=== PATIENT | female | born 1960 | race Caucasian/White ===

== ENCOUNTER 2024-03-19 12:47 | Outpatient (RCR) | payer MEDICARE, MEDICAID, SELFPAY ==
--- NOTE | 2024-03-19 13:10 | PTNOTE_ITS ---
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 She hasn't walked for about 1.5 yrs due to a L great toe wound that didn't heal. She needs assist for all ADL's. 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 This limits standing tolerance as well as extreme weakness of B LE's due to not ambulating for 1.5 yrs and scar tissue/adaptive shortening. She would benefit from some ankle weights to use on top of the knees to extend which will help her standing posture. Pt may benefit from skilled therapy to meet goals and has poor/fair rehab potential depending on if she can overcome the B knee flexion contractures and then strengthen LE's to stand. Short Term and Burlapper Goals 1. Ind with HEP 2. Improved B knee extension to at least -10 deg in order to stand 3. Transfer sit to stand and W/C to chair with modAx1 4. Stand with hand support x30 seconds and minAx1 Treatment Plan 1. Manual therapy ? 2. Therex ? 3. Modalities as indicated, moist heat, ice, estim Frequency and Duration: 1x a week or 1x every 2 weeks while she does knee extension stretches HEP at home and then increase frequency for 12 visits Certification Dates: 03/19/24 to 06/15/24 Procedure Charges OP PT Eval Mod Complex 30 minutes: Yes
== END 2024-03-28 23:59 | disposition home or self-care (01) ==
LOC: CPTX 12:47
PROVIDERS: PCP Family Medicine; Referring Provider Family Medicine; Visit Provider Family Medicine
DX: R53.1 Weakness (principal); R26.89 Other abnormalities of gait and mobility; M24.562 Contracture, left knee; M24.561 Contracture, right knee
CPT/HCPCS: 97162

== ENCOUNTER 2024-10-29 12:41 | Inpatient (IN) | payer MEDICARE, MEDICAID, SELFPAY ==
[2024-10-29 12:44] VITALS: BMI 29.5
--- NOTE | 2024-10-29 12:57 | XR_ITS ---
Examination: Venous duplex lower extremity sonogram, bilateral. Date and time of exam: October 29, 2024 1528 hrs. Indications: Bilateral leg swelling discoloration and nonhealing wounds in the lower legs beginning one month ago Technique: Multiple sonographic images of the deep venous system have been obtained. B-mode/2-D grayscale imaging of vascular structures and Doppler spectral analysis (waveforms) and color performed Both legs are examined. Findings: Deep venous systems do not demonstrate abnormal echogenicity. All visualized deep veins exhibit compressibility. All visualized deep veins exhibit augmentation. Impression: Negative for deep vein thrombosis As clinically warranted, consider arterial Doppler sonography lower extremities follow-up
--- NOTE | 2024-10-29 12:57 | EKG_ITS ---
[facility] Test Date: 2024-10-29 Pat Name: BIANCA MURRAY Department: Room: - Gender: Female Account Advisor: : 1960 Requested By: Lyudmila Masters Order Number: [id number] Reading MD: Lyudmila Masters Measurements Intervals Edison Rate: 81 P: 43 LA: 123 QRS: 34 QRSD: 90 T: 37 QT: 406 QTc: 473 Interpretive Statements SINUS RHYTHM Compared to ECG 02/06/2020 09:58:07 Sinus tachycardia no longer present Short LA interval no longer present /store/S0/[id number]/ecg/[id number].pdf
--- NOTE | 2024-10-29 12:58 | XR_ITS ---
Examination: AP chest single view Technique one AP portable upright chest single view Date and time: August 28, 2024 1432 hours, comparison February 06, 2020 INDICATIONS: Chest pain shortness of breath beginning today. FINDINGS: Normal heart size Moderate elevation right hemidiaphragm with subsegmental atelectasis right base. No pneumonia or pulmonary edema Severe osteopenia IMPRESSION: Again noted moderate elevation right hemidiaphragm with subsegmental atelectasis right base
--- NOTE | 2024-10-29 12:59 | EDNOTE_ITS ---
<Statement entered by Ghazala Delaney MD - 11/08/24 11:09> As co-signing physician, I was present and available for consult prn. I concur with the plan and care as documented by the midlevel provider. ED General RME/HPI General Chief complaint: Weakness Stated complaint: WEAKNESS Time Seen by Provider: 10/29/24 12:48 Arrival date/time: 10/29/24 12:41 RME / HPI RME / HPI narrative: 64-year-old female patient with significant history of hypertension, chronic kidney disease, came in for evaluation regarding possible renal failure according to the EMS. Patient had a blood drawn done last week, and was noted that creatinine was superhigh, however patient refused to go to the emergency room. Today patient decided to come to the emergency room for help. Patient complaining of generalized body weakness, worsening swelling to bilateral lower extremities. Patient is nonambulatory due to contracted lower extremities. Denies any shortness of breath denies any cough denies any fever denies any abdominal pain. Patient still making good amount of urine according to her. Denies any dysuria frequency or hematuria. Related Data Home Medications ?Medication ?Instructions ?Recorded ?Confirmed furosemide 20 mg tablet 20 mg PO QDAY 02/06/2002/05 lisinopril 20 mg tablet 20 mg PO QDAY 02/06/2002/05 pregabalin 75 mg capsule 75 mg PO QDAY 02/06/2002/05 methadone 10 mg/mL oral syringe 115 mg PO QDAY 0 02/11/20 (FOR ORAL USE ONLY) Allergies Allergy/AdvReac Type Severity Reaction Status Date / Time duloxetine AdvReac Severe hair loss Verified 02/06/20 10:53 Review of Systems Review of Systems Narrative Review of Systems: Review of system reviewed and within normal limits except mentioned in HPI ED Exam Narrative Physical exam: VITAL SIGNS: Reviewed. GENERAL APPEARANCE: Alert and interactive, follows commands, no acute distress, HEAD AND FACE: Non-traumatic. ENT: PERRL, pale conjunctiva, eyelid no trauma, Mucous membrane moist. NECK: Supple, nontender, no nuchal rigidity. CHEST: No tenderness, no crepitus, no paradoxical movement, no retractions. LUNGS: Clear, well ventilated, symmetric, no rales, no wheezing, no ronchi, no stridor, good breath sounds bilaterally. HEART: Regular rate, regular rhythm, no murmur, no gallops. ABDOMEN: Soft, positive bowel sounds, nondistended, no guarding, nontender, no rebound, no masses, RECTAL: Deferred. GENITAL: Deferred. NEUROLOGICAL: Gross motor function intact sensory function intact, Appropriate for age. MUSCULOSKELETAL: low back nontender, full range of motion. EXTREMITIES: +2 bilateral lower extremity edema, shiny, with healing wound, limited range of motion. Barely palpable bilateral lower extremity pulses SKIN: Color pale, dry, no rash, no lacerations, no abrasions, no contusions. LYMPHATICS: Deferred. Course Quality Measures none Orders Category Date Time Status Admit to Inpatient Status Routine Admission 10/29/24 16:29 Active Patient Condition Routine Admission 10/29/24 16:29 Ordered COVID-19 Screening Questionnaire NOW Care 10/29/24 14:46 Active COVID-19 Screening Questionnaire NOW Care 10/29/24 15:34 Active Decision to Admit X1 Care 10/29/24 14:46 Completed Decision to Admit X1 Care 10/29/24 15:34 Completed EKG (ED ONLY) *Do not use* NOW Care 10/29/24 12:58 Completed Kohli [Urinary Catheter] QS Care 10/29/24 16:29 Active Miscellaneous Nursing Order NOW Care 10/29/24 16:29 Active Notify provider NEEDED Care 10/29/24 16:29 Active Occult Blood,Stool (Nursing) NOW Care 10/29/24 15:35 Active Strict Intake and Output Routine Care 10/29/24 16:40 Ordered Transfuse,blood/blood products ONCE Care 10/29/24 13:48 Active Consult to Nephrology Stat Cons 10/29/24 14:46 Ordered Diet Renal Diet 10/29/24 Dinner Active CA echo doppler complete Routine Exams 10/29/24 16:34 Ordered EKG (ED Only) Stat Exams 10/29/24 12:57 Ordered US renal BI Routine Exams 10/29/24 16:41 Ordered US venous doppler LE BI Stat Exams 10/29/24 12:57 Taken XR chest 1V Stat Exams 10/29/24 12:58 Completed B-Type Natriuretic Peptide Stat Lab 10/29/24 15:04 Completed CBC AM DRAW Lab 10/30/24 05:00 Ordered CBC AM DRAW Lab 10/31/24 05:00 Ordered CBC AM DRAW Lab 11/01/24 05:00 Ordered CBC Stat Lab 10/29/24 13:15 Completed Comprehensive Metabolic Panel AM DRAW Lab 10/30/24 05:00 Ordered Comprehensive Metabolic Panel AM DRAW Lab 10/31/24 05:00 Ordered Comprehensive Metabolic Panel AM DRAW Lab 11/01/24 05:00 Ordered Comprehensive Metabolic Panel Stat Lab 10/29/24 13:15 Completed Drug Screen,Urine Stat Lab 10/29/24 15:35 Ordered Folate Routine Lab 10/29/24 16:39 Ordered HCV RNA, PCR, QN* (Source Pt) Routine Lab 10/29/24 Ordered Iron Panel Routine Lab 10/30/24 05:00 Ordered Lactate (Lactic Acid) Routine Lab 10/29/24 16:05 Completed Lipid Panel AM DRAW Lab 10/30/24 05:00 Ordered Magnesium AM DRAW Lab 10/30/24 05:00 Ordered Partial Thromboplastin Time Stat Lab 10/29/24 13:15 [address] Review Blood Smear Stat Lab 10/29/24 13:15 Completed Procalcitonin Stat Lab 10/29/24 16:00 Received Prothrombin Time with INR Stat Lab 10/29/24 13:15 Completed Thyroid Stimulating Hormone AM DRAW Lab 10/30/24 05:00 Ordered Troponin I Stat Lab 10/29/24 13:15 Completed Type and Screen Stat Lab 10/29/24 13:48 Ordered Urinalysis, C/S if Indicated Stat Lab 10/29/24 14:24 Completed Urine Culture Stat Lab 10/29/24 14:24 Received Vitamin B12 Routine Lab 10/29/24 16:39 Ordered prbc [Red Blood Cells] Stat Lab 10/29/24 13:48 Ordered 1 gm* IV Qday Med 10/30/24 09:00 Ordered cefTRIAXone/D5w 1gm IV premix [Rocephin/D5w 1gm IV premix] 1 gm in 50 ml IV QDAY Acetaminophen Tab [Tylenol Tab] Med 10/29/24 16:29 Ordered 650 mg PO Q6H PRN Heparin Inj Med 10/29/24 22:00 Ordered 5,000 unit SC Q8HR Ondansetron Inj [Zofran Inj] Med 10/29/24 16:29 Active 4 mg IVP Q6H PRN Ringers Lactated 1000 ml [Lactated Ringers] 1,000 ml Med 10/29/24 16:37 Ordered IV 100 mls/hr Senna [Senokot] Med 10/30/24 09:00 Active 1 tab PO QDAY cefTRIAXone/D5w 1gm IV premix [Rocephin/D5w 1gm IV Med 10/29/24 15:31 Discontinued premix] 1 gm in 50 ml IV X1 Code Status Routine Oth 10/29/24 16:29 Ordered Vital Signs Vital signs: Vital Signs Temperature 97.5 F 10/29/24 13:28 Pulse Rate 78 10/29/24 13:28 Respiratory Rate 17 10/29/24 13:28 Blood Pressure 140/91 H 10/29/24 13:28 Pulse Oximetry (%) 100 10/29/24 13:28 Oxygen Delivery Method Room Air 10/29/24 13:28 Discharge Plan Plan Patient Disposition: Admit Acute Care w/in Hospital Discharge Disposition comment: Stable Prescriptions/Referrals Prescriptions/Med Rec: No Action lisinopril 20 mg tablet 20 mg PO QDAY furosemide 20 mg tablet 20 mg PO QDAY pregabalin 75 mg capsule 75 mg PO QDAY methadone 10 mg/mL Syringe 115 mg PO QDAY Rx Instructions: CONFIRMED WITH ANTELMO AMAYA Referrals: Stan Marroquin MD [Primary Care Provider] - In 1 week Problem List Clinical Impression: UTI (urinary tract infection), Anemia, End-stage renal disease (ESRD) Patient/Caregiver Discharge Instructions Print Language: Urdu Stand Alone Forms: [facility]quel Award Info., Patient Portal Info Letter MDM Narrative MDM hospital course: 64-year-old female patient with significant history of hypertension, chronic kidney disease, came in for evaluation regarding possible renal failure according to the EMS. Patient had a blood drawn done last week, and was noted that creatinine was superhigh, however patient refused to go to the emergency room. Today patient decided to come to the emergency room for help. Patient complaining of generalized body weakness, worsening swelling to bilateral lower extremities. Patient is nonambulatory due to contracted lower extremities. Denies any shortness of breath denies any cough denies any fever denies any abdominal pain. Patient still making good amount of urine according to her. Denies any dysuria frequency or hematuria. Patient hemoglobin today was noted to be 6.6, hematocrit of 21.3. Creatinine was noted to be 5.8, BUN of 57. Potassium is normal. Urinalysis positive for UTI. Chest x-ray showed Again noted moderate elevation right hemidiaphragm with subsegmental atelectasis right base Patient received 1 unit of packed RBC in the emergency room. Spoke with Dr. Marquez photo producer, who advised me to admit the patient for possible dialysis in the morning. Spoke with hospitalist who admitted the patient. Medication Administration(s) Medication Administration History Acetaminophen (Acetaminophen 325 Mg Tablet) 650 mg PO Q6H PRN PRN Reason: Fever >101.5 Stop: 11/28/24 16:28 Heparin Sodium (Porcine) (Heparin Sod Inj 5000 Unit/Ml Vial) 5,000 unit SC Q8HR SIDRA Stop: 11/12/24 21:59 Lactated Ringer's (Lactated Ringers) 1,000 mls @ 100 mls/hr IV .Q10H ONE Stop: 10/30/24 02:36 Ondansetron HCl (Ondansetron Inj 2 Mg/Ml Inj 2 Ml) 4 mg IVP Q6H PRN; Protocol PRN Reason: NAUSEA OR VOMITING Stop: 11/28/24 16:28 Sennosides (Senna Tablet) 1 tab PO QDAY SIDRA; Protocol Stop: 11/29/24 08:59 Discontinued Medications Ceftriaxone Sodium/Dextrose (Rocephin/D5w 1gm Iv Premix) 1 gm in 50 mls @ 100 mls/hr IV X1 ONE Stop: 10/29/24 16:00 Last Admin: 10/29/24 16:05 Dose: 100 mls/hr Documented By: AA Patient received ceftriaxone IV, Tylenol, IV fluids for hydration and Zofran
[2024-10-29 13:28] VITALS: BP 140/91; PULSE 78; RESP 17; TEMP 36.4; O2SAT 100
[2024-10-29 13:29] LABS: Basophils # (Auto) 0.0 Thou/mm3 (0.0-0.2); Basophils % (Auto) 0 % (0-2.5); Eosinophils # (Auto) 0.1 Thou/mm3 (0.0-0.5); Eosinophils % (Auto) 4 % (0-10); Hematocrit 21.3 % (36.0-46.0); Immature Granulocytes Auto 0.02 Thou/mm3 (0.00-0.00); Lymphocytes # (Auto) 0.4 Thou/mm3 (1.0-4.8); Lymphocytes % (Auto) 13 % (10-50); Mean Corpuscular HGB Conc 31.0 g/dl (31.0-37.0); Mean Corpuscular Hemoglobin 28.1 pg (25.0-35.0); Mean Corpuscular Volume 91 fL (80-100); Monocytes # (Auto) 0.2 Thou/mm3 (0.0-0.8); Monocytes % (Auto) 8 % (0-12); Neutrophils # (Auto) 2.3 Thou/mm3 (1.8-7.7); Neutrophils % (Auto) 75 % (37-80); Nucleated Red Blood Cell # 0.00 Thou/mm3 (0.00-0.00); Nucleated Red Blood Cell % 0 /100 WBC (0); RDW Standard Deviation 50.8 fL (36.4-46.3); Red Blood Count 2.35 Miln/mm3 (4.00-5.20); White Blood Count 3.1 Thou/mm3 (3.6-11.0)
[2024-10-29 13:30] LABS: Hemoglobin 6.6 g/dL (12.0-16.0); Platelet Count 78 Thou/mm3 (140-440)
[2024-10-29 13:50] LABS: Alanine Aminotransferase 18 U/L (10-49); Albumin, Serum 3.6 gm/dL (3.4-4.8); Albumin/Globulin Ratio 1.5 (1.2-2.2); Alkaline Phosphatase 143 U/L (46-116); Anion Gap 14 (7-16); Aspartate Amino Transferase 23 U/L (0-34); BUN/Creatinine Ratio 10 Ratio (12-20); Bilirubin,Total 0.4 mg/dL (0.3-1.2); Blood Urea Nitrogen 57 mg/dL (9-23); Calcium 8.8 mg/dL (8.3-10.6); Calcium (Corrected) 9.1 mg/dL (8.5-10.1); Carbon Dioxide 19.0 mMol/L (20.0-31.0); Chloride 113 mMol/L (98-107); Creatinine (Component) 5.8 mg/dL (0.6-1.3); Estimated Creatinine Clearance 11.6 mL/min (>60); Globulin 2.4 gm/dL (2.3-3.5); Glucose 102 mg/dL (74-106); Osmolality,Calculated 306 (275-295); Potassium 4.3 mMol/L (3.4-5.1); Sodium 146 mMol/L (136-145); Total Protein 6.0 gm/dL (5.7-8.2); Troponin I < 0.020 ng/mL (0.0-0.045); eGFR 8 See Note
[2024-10-29 14:01] LABS: INR 1.1 (0.9-1.3); Partial Thromboplastin Time 24.4 Seconds (22.0-36.0); Prothrombin Time 11.6 Seconds (9.0-12.2)
[2024-10-29 14:37] LABS: Collection Type, Urine Clean Catch
[2024-10-29 14:51] LABS: Amorphous Crystals,Urine Present (Absent); Bacteria,Urine 2+; Bilirubin,Urine Negative (Negative); Blood,Urine 3+ (Negative); Glucose, Urine Negative (Negative); Ketones,Urine Negative (Negative); Leukocyte Esterase,Urine Positive (Negative); Nitrite,Urine Negative (Negative); PH,Urine 5.5 (5.0-7.0); Protein,Urine 2+ (Neg - Trace); RBC,Urine 114 /hpf (0-3); Specific Gravity,Urine 1.011 (1.001-1.035); Squamous Epithelial Cell,Urine 10 /hpf (0-5); Urobilinogen,Urine Negative mg/dL (0.0-1.0); WBC,Urine 208 /hpf (0-5)
[2024-10-29 14:55] LABS: Clarity,Urine Cloudy (Clear/Hazy); Color,Urine Lt-Yellow (Lt Yel-Yel); Culture Indicated,Urine Yes
[2024-10-29 15:02] LABS: Slide Review Platelets confirmed
[2024-10-29 15:21] LABS: Path Review Blood Smear Sent to Pathologist
[2024-10-29 15:34] LABS: B-Type Natriuretic Peptide 197 pg/mL (0-100)
[2024-10-29] MEDS: cefTRIAXone/D5w 1gm IV premix 1 GM/50 ML BAG IV (16:05)
[2024-10-29 16:09] LABS: Lactate (Lactic Acid) 1.2 mMol/L (0.4-2.0)
--- NOTE | 2024-10-29 16:34 | ECHO_ITS ---
Transthoracic Echo Report Ht (in): 69 Wt (lb): 200 Exam Location: Echo Lab Status: Emergency Animal Caregiver: Amirah Lopez Indications: Procedure Performed: BP: 121 / 63 HR: 73 Technical Quality: Technically difficult study MEASUREMENTS (Male / Female) Normal Values 2D ECHO LV Diastolic Diameter PLAX 4.7 cm 4.2 - 5.9 / 3.9 - 5.3 cm LV Systolic Diameter PLAX 2.9 cm IVS Diastolic Thickness 0.7 cm 0.6 - 1.0 / 0.6 - 0.9 cm LVPW Diastolic Thickness 0.9 cm 0.6 - 1.0 / 0.6 - 0.9 cm LV Relative Wall Thickness 0.3 LVOT Diameter 1.8 cm Aortic Root Diameter 3.1 cm LA Systolic Diameter LX 5.1 cm 3.0 - 4.0 / 2.7 - 3.8 cm LV Ejection Fraction MOD BP 65.3 % >= 55 % LV Cardiac Index MOD BP 3254.3 cm?/min?m? LV Ejection Fraction MOD 4C 57.8 % LV Cardiac Index MOD 4C 2206.2 cm?/min?m? LV Ejection Fraction 4C AL 60.0 % LV Cardiac Index 4C AL 2425.2 cm?/min?m? LV Ejection Fraction MOD 2C 69.5 % LV Cardiac Index MOD 2C 3893.4 cm?/min?m? LV Ejection Fraction 2C AL 69.6 % LV Cardiac Index 2C AL 4121.3 cm?/min?m? LA Volume Index 21.8 cm?/m? 16 - 28 cm?/m? M-MODE Aortic Root Diameter MM 2.6 cm LA Systolic Diameter MM 4.9 cm LA Ao Ratio MM 1.9 AV Cusp Separation MM 2.0 cm DOPPLER AV Peak Velocity 156.0 cm/s AV Peak Gradient 9.7 mmHg AV Mean Gradient 5.0 mmHg AV Velocity Time Integral 35.2 cm LVOT Peak Velocity 115.0 cm/s LVOT Peak Gradient 5.3 mmHg LVOT Velocity Time Integral 29.4 cm LVOT Cardiac Index 2570.9 cm?/min?m? AV Area Cont Eq vti 2.1 cm? AV Area Cont Eq pk 1.9 cm? MV Area PHT 3.3 cm? Mitral E Point Velocity 107.0 cm/s Mitral A Point Velocity 106.0 cm/s Mitral E to A Ratio 1.0 LV E' Lateral Velocity 10.7 cm/s Mitral E to LV E' Lateral Ratio 10.0 LV E' Septal Velocity 7.3 cm/s Mitral E to LV E' Septal Ratio 14.7 TR Peak Velocity 238.0 cm/s TR Peak Gradient 22.7 mmHg FINDINGS Left Ventricle Normal left ventricular size, wall thickness, systolic function with no obvious regional wall motion abnormalities. The ejection fraction is visually estimated at 55-60%. There is grade I diastolic dysfunction of the left ventricle (impaired relaxation pattern). Right Ventricle The right ventricle is normal in size and systolic function. Left Atrium The left atrium is normal by two-dimensional, color flow and Doppler imaging with no structural abnormalities, no thrombus formation present. Right Atrium The right atrium is normal by two-dimensional imaging, color flow and Doppler imaging with no structural abnormalities, no thrombus formation present. Atrial Septum The interatrial septum appears normal with no evidence of a shunt. Aorta The aorta is normal by two-dimensional, color flow and Doppler interrogation. Mitral Valve The mitral valve is normal by two-dimensional, color flow and Doppler interrogation. There is no significant mitral valve regurgitation, stenosis or prolapse. Aortic Valve The aortic valve is trileaflet and normal by two-dimensional, color flow and Doppler interrogation. There is no significant aortic valve regurgitation. Tricuspid Valve The tricuspid valve is normal by two-dimensional, color flow and Doppler interrogation. There is mild tricuspid valve regurgitation. Pulmonic Valve The pulmonic valve is not well visualized. There is no significant pulmonic valve regurgitation. Vessels Inferior vena cava not well visualized. Pericardium The pericardium is normal by two-dimensional imaging. There is no significant pericardial effusion. CONCLUSIONS Indication: CKD Normal LV size and wall thickness. Estimated at 55-60%. There is grade I diastolic dysfunction. The RV is normal in size and systolic function. Mild TR. Collins Rowan (Electronically Signed) Final Date: 01 November 2024 11:05
--- NOTE | 2024-10-29 16:41 | XR_ITS ---
Examination: Retroperitoneal ultrasound, complete Technique: Multiple high resolution grayscale images of the retroperitoneum obtained, including kidneys and bladder. Exam date and time:October 29, 2024, 1654 hrs. Indications: Acute renal insufficiency on laboratory examination today. Findings: Right kidney 10.4 cm renal cortex 1.5 cm Midpole 22 mm cyst Left kidney 10.3 cm cortex 0.9 cm 16 x 13 mm midpole cyst Moderate renal parenchymal scar formation. No hydronephrosis No bladder mass or bladder calculi, bladder prevoid volume 444 cc postvoid volume 0 cc Impression: Bilateral renal cortical thinning Moderate bilateral renal parenchymal scar formation No hydronephrosis
[2024-10-29 16:55] LABS: Procalcitonin 0.35 ng/ml (0.0-0.49)
--- NOTE | 2024-10-29 16:58 | XR_ITS ---
Examination: Arterial duplex lower extremity study. Date and time of exam: October 29, 2024, 1711 hrs. Indications: Bilateral leg swelling discoloration and nonhealing wounds both legs noticed beginning one month ago. Findings: Duplex sonographic imaging of the lower extremity arteries using B-mode/Stearns scale imaging and Doppler spectral analysis and color flow. Ankle brachial indices have been recorded. Right common femoral artery demonstrates triphasic flow. Right superficial femoral artery demonstrates triphasic flow. Right popliteal artery demonstrates triphasic flow. Right posterior tibial artery demonstrated triphasic flow. Right ankle/brachial index is 1.1. Left common femoral artery demonstrates triphasic flow. Left superficial femoral artery demonstrates triphasic flow. Left popliteal artery demonstrates monophasic flow. Left posterior tibial artery demonstrated monophasic flow. Left ankle/brachial index is 1.3. Impression: Negative for significant peripheral obstructive arterial disease
--- NOTE | 2024-10-29 17:00 | ESHP_ITS ---
Documentation for date of: 10/29/24 HPI History of Present Illness Chief complaint: Generalized weakness History of present illness: A 64-year-old female with significant past medical history of hypertension, chronic back pain on methadone, hepatitis C treated with interferon therapy in 2001, pancreatic mass, bedbound since 2 years, CKD presented to the hospital with chief complaints of generalized weakness and noted to have worsening kidney functions on the lab work done recently a week ago. Reported that she is bedbound since 2 years after grafts placed on the lower extremities and since then patient is unable to bear weight on her legs and also developed contractures. 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 Reported that she is having bilateral lower extremity swelling since almost 2 months. Denies fever, shortness of breath, burning micturition, abdominal pain, nausea, vomitings, blood in stools, change in urine output.Denies previous history of CAD/similar complaints/hemodialysis. ED course: - Vitals at the time of admission are stable except for mildly elevated blood pressure 140/91 mmHg and saturating 100% on room air - Labs at the time of admission are significant for WBC 3.1, hemoglobin 6.6, platelet count 78, sodium 146, potassium 4.3, chloride 113, bicarb 19, BUN 57, creatinine 5.8 - Urinalysis is significant for 2+ protein, 3+ blood, 114 RBC, 208 WBC, 2+ bacteria - Urine toxicology tested positive for opiates, methamphetamine, marijuana - Chest x-ray done at the time of admission showed elevated right Lionel diaphragm with no significant infiltrates - Bilateral venous Doppler of lower extremities is negative for DVT Past medical history: Hypertension, chronic back pain, hepatitis C, pancreatic mass, CKD, Had history of diabetes mellitus but resolved now Past surgical history: Grafts on left lower extremity Social history: Lives at home and is taken care of by care provider. Denies smoking, alcohol, other illicit drug abuse but urine toxicology tested positive for marijuana and methamphetamine Review of Systems Review of Systems Systems Reviewed: All systems reviewed, normal except as documented Exam Vital Signs Temp Pulse Resp BP Pulse Ox O2 Del Method 97.5 F 78 17 140/91 H 100 Room Air 10/29/24 13:28 10/29/24 13:28 10/29/24 13:28 10/29/24 13:28 10/29/24 13:28 10/29/24 13:28 Narrative Exam General: Awake. lying comfortably in the bed HEENT: Normocephalic, atraumatic, mucous membranes moist. Heart: Regular rate and rhythm, no murmurs. Lungs: Clear to auscultation with no wheezing or crackles. Abdomen: Soft, nondistended, nontender, positive bowel sounds. ?No guarding or rebound tenderness. Neurologic: Alert and oriented x3, no gross neurological deficit, and patient able to move all 4 extremities. Extremities: Noted b/l pitting pedal edema extending upto knees. Skin: Noted rash on lower extremities and flaking with chronic skin changes - induration Results: Labs 10/30/24 08:59 10/30/24 08:59 Labs: Short CBC 10/29/24 Range/Units 13:15 WBC 3.1 L (3.6-11.0) Thou/mm3 Hgb 6.6 L* (12.0-16.0) g/dL Hct 21.3 L* (36.0-46.0) % Plt Count 78 L (140-440) Thou/mm3 BMP 10/29/24 13:15 Sodium 146 H Potassium 4.3 Chloride 113 H Carbon Dioxide 19.0 L BUN 57 H Creatinine 5.8 H* Glucose 102 Calcium 8.8 Cardiac Enzymes 10/29/24 Range/Units 13:15 Troponin I < 0.020 (0.0-0.045) ng/mL Liver Function 10/29/24 Range/Units 13:15 Total Bilirubin 0.4 (0.3-1.2) mg/dL AST 23 (0-34) U/L ALT 18 (10-49) U/L Alkaline Phosphatase 143 H (46-116) U/L Albumin 3.6 (3.4-4.8) gm/dL Urine 10/29/24 Range/Units 14:24 Urine Color Lt-Yellow (Lt Yel-Yel) Urine Clarity Cloudy A (Clear/Hazy) Urine pH 5.5 (5.0-7.0) Ur Specific [place] 1.011 (1.001-1.035) Urine Protein 2+ A (Neg - Trace) Urine Glucose (UA) Negative (Negative) Quality Measures Quality Measures none Advance care planning discussed with:: patient Medications Home Medications and Allergies Home Medications ?Medication ?Instructions ?Recorded ?Confirmed ?Type lisinopril 20 mg tablet 20 mg PO QDAY 02/06/2010/29 History methadone 10 mg/mL oral syringe 65 mg PO QDAY 02/11/20 10/29/24 History (FOR ORAL USE ONLY) Allergies Allergy/AdvReac Type Severity Reaction Status Date / Time duloxetine AdvReac Severe hair loss Verified 02/06/20 10:53 Visit Medications Acetaminophen (Acetaminophen 325 Mg Tablet) 650 mg PO Q6H PRN PRN Reason: Temp >100.3 or mild pain 1-3 Stop: 11/28/24 16:28 Heparin Sodium (Porcine) (Heparin Sod Inj 5000 Unit/Ml Vial) 5,000 unit SC Q8HR SIDRA Stop: 11/12/24 21:59 Lactated Ringer's (Lactated Ringers) 1,000 mls @ 100 mls/hr IV .Q10H ONE Stop: 10/30/24 02:36 Ceftriaxone Sodium/Dextrose (Rocephin/D5w 1gm Iv Premix) 1 gm in 50 mls @ 100 mls/hr IV QDAY SIDRA Stop: 11/06/24 08:59 Ondansetron HCl (Ondansetron Inj 2 Mg/Ml Inj 2 Ml) 4 mg IVP Q6H PRN; Protocol PRN Reason: NAUSEA OR VOMITING Stop: 11/28/24 16:28 Sennosides (Senna Tablet) 1 tab PO QDAY SIDRA; Protocol Stop: 11/29/24 08:59 Discontinued Medications Ceftriaxone Sodium/Dextrose (Rocephin/D5w 1gm Iv Premix) 1 gm in 50 mls @ 100 mls/hr IV X1 ONE Stop: 10/29/24 16:00 Last Admin: 10/29/24 16:05 Dose: 100 mls/hr Assessment & Plan Plan A 64-year-old female with significant past medical history of hypertension, chronic back pain on methadone, hepatitis C treated with interferon therapy in 2001, pancreatic mass, bedbound since 2 years, CKD presented to the hospital with chief complaints of generalized weakness and noted to have worsening kidney functions on the lab work done recently a week ago. # Acute on chronic kidney disease versus CKD - Presented to the hospital as patient found to have worsened renal functions on a regular checkup - Denies burning micturition, change in urine output, nausea, vomiting, diarrhea episodes, no change in diet and endorsed that she is taking adequate fluids - Endorsed that she is having lower extremity swelling since almost 2 months - Baseline creatinine is 2.5 in 2022, creatinine at the time of admission is 5.8 - Patient might be having progressive chronic kidney disease as patient had history of hypertension and previous history of diabetes mellitus complicated with diabetic peripheral neuropathy and peripheral arterial disease which was controlled now even without medications Plan - Renal ultrasound is ordered - Kohli catheter was placed and will do strict input and output monitoring - Air Conditioning Technician, Dr. Muniz was consulted and will appreciate his recommendations - Will avoid nephrotoxic medications and renally dose medications - If renal functions does not improve, patient might need dialysis which was explained to the patient and patient agreed to that # Hypernatremia # Hyperchloremia - Noted to have sodium of 146, chloride 113 at the time of presentation - Might be having mild dehydration - Bedside ultrasound to check IVC was done, but could not assess properly due to poor visibility Plan - Started patient on IV maintenance fluids, LR at 100 mL/h - Will continue to monitor electrolytes # Metabolic acidosis - Likely in the setting of the renal failure - Bicarb at the time of admission is 19 - Does not have any anion gap or lactic acidosis - On examination, does not have any acidotic breathing Plan - Will continue to monitor electrolytes - If acidosis is worsening, patient might need dialysis # UTI - Though patient denies burning micturition, urine analysis at the time of admission is suggestive of UTI showing 2+ protein, 3+ blood, 114 RBC, 208 WBC, 2+ bacteria Plan - Started on ceftriaxone 1 g IV once daily [10/29- - Will follow-up with urinary cultures # Pancytopenia - At the time of admission, noted to have WBC 3.1, hemoglobin 6.6, platelet 78,000 - Likely nutritional, anemia of chronic kidney disease Plan - Peripheral smear was sent - Iron, B12, folate study is ordered and will follow-up for the results - Transfused 1 unit of PRBC - Will continue to monitor CBC and look for any bleeding manifestations # Methamphetamine, marijuana use disorder # Opioid dependence for chronic back pain - Patient reported that she uses methadone 65 mg once daily for the chronic back pain that developed when she is working as she used to lift heavy weights - Patient denied any illicit drug abuse but tested positive for methamphetamine, marijuana Plan - Will refer to social science manager - Will continue methadone 65 mg once daily for back pain Hospital Maintenance: Dispo: Med tele DVT ppx: Heparin GI ppx: not needed Diet : Renal IV lines: peripheral Code status: Full Patient plan of care was discussed with the attending physician, Dr. Dorothea Feliciano, PGY2 Attending Provider Attestation/Addendum I, Gracie Piedra DO, attest that I was physically present for the clemons portions of the service and evaluated the patient with the resident and I reviewed and discussed the case with the resident and agree with the resident's findings and plans of care as documented above Patient is a 64-year-old female past medical history of hypertension, chronic back pain on methadone, hepatitis C, pancreatic mass who is bedbound and was brought to ED due to referral by her PCP. Patient states that she had her labs done outpatient and was told to come to the ER due to her poor renal function. Patient has been bedbound for 2 years due to grass placed on her lower extremities. She states that she has been feeling unwell for the past week and has had poor oral intake. She denies any significant weight loss. She denies any dysuria, chest pain, shortness of breath, fevers or chills otherwise. Patient was found to have a creatinine of 5.8 on presentation to the ED with BUN of 57. Hemoglobin was noted also to be 6.6. Patient denies any blood in the stool. She denies any hx of endoscopy or colonoscopy. She also denies following with nephrology in the past. Suspect anemia of chronic disease secondary to CKD. Nephrology was consulted from ED. Will start patient on IV fluids as she may have PANCHO on CKD. Will admit patient to med/ tele for further workup and medical management of acute renal failure. Patient denies any active chest pain, fever, chills, nausea, vomiting or shortness of breath.
[2024-10-29 17:13] LABS: Amphetamine/Methamp Scrn,U Positive (Negative); Barbiturate Screen,Urine Negative (Negative); Benzodiazepines Screen,Urine Negative (Negative); Benzoylecgonine Screen, Ur Negative (Negative); Fentanyl Screen,Urine Negative (Negative); Opiate Screen,Urine Positive (Negative); THC Screen,Urine Positive (Negative)
--- NOTE | 2024-10-29 17:27 | ESCONSULT_ITS ---
History of Present Illness Data of Consult Requesting Physician: Gracie Piedra DO Primary Care Provider: Stan Marroquin MD Consult Narrative History of present illness: A 64-year-old female with significant past medical history of hypertension, chronic back pain on methadone, hepatitis C treated with interferon therapy in 2001, pancreatic mass, bedbound since 2 years, CKD presented to the hospital with chief complaints of generalized weakness and noted to have worsening kidney functions on the lab work done recently a week ago. Nephrology is consulted for renal failure. cc:: cc: Gracie Piedra DO Review of Systems Review of Systems Systems Reviewed: All systems reviewed, normal except as documented Meds Home Medications and Allergies Home Medications ?Medication ?Instructions ?Recorded ?Confirmed ?Type lisinopril 20 mg tablet 20 mg PO QDAY 02/06/2010/29 History methadone 10 mg/mL oral syringe 65 mg PO QDAY 02/11/20 10/29/24 History (FOR ORAL USE ONLY) Allergies Allergy/AdvReac Type Severity Reaction Status Date / Time duloxetine AdvReac Severe hair loss Verified 02/06/20 10:53 Exam Vital Signs Temp Pulse Resp BP Pulse Ox O2 Del Method 97.5 F 78 17 140/91 H 100 Room Air 10/29/24 13:28 10/29/24 13:28 10/29/24 13:28 10/29/24 13:28 10/29/24 13:28 10/29/24 13:28 Narrative Exam General: Awake. lying comfortably in the bed HEENT: Normocephalic, atraumatic, mucous membranes moist. Heart: Regular rate and rhythm, no murmurs. Lungs: Clear to auscultation with no wheezing or crackles. Abdomen: Soft, nondistended, nontender, positive bowel sounds. ?No guarding or rebound tenderness. Neurologic: Alert and oriented x3, no gross neurological deficit, and patient able to move all 4 extremities. Extremities: Noted b/l pitting pedal edema extending upto knees. Skin: Noted rash on lower extremities and flaking with chronic skin changes - induration Results Labs 10/30/24 08:59 10/30/24 08:59 Labs: Short CBC 10/29/24 Range/Units 13:15 WBC 3.1 L (3.6-11.0) Thou/mm3 Hgb 6.6 L* (12.0-16.0) g/dL Hct 21.3 L* (36.0-46.0) % Plt Count 78 L (140-440) Thou/mm3 BMP 10/29/24 13:15 Sodium 146 H Potassium 4.3 Chloride 113 H Carbon Dioxide 19.0 L BUN 57 H Creatinine 5.8 H* Glucose 102 Calcium 8.8 Cardiac Enzymes 10/29/24 Range/Units 13:15 Troponin I < 0.020 (0.0-0.045) ng/mL Liver Function 10/29/24 Range/Units 13:15 Total Bilirubin 0.4 (0.3-1.2) mg/dL AST 23 (0-34) U/L ALT 18 (10-49) U/L Alkaline Phosphatase 143 H (46-116) U/L Albumin 3.6 (3.4-4.8) gm/dL Urine 10/29/24 Range/Units 14:24 Urine Color Lt-Yellow (Lt Yel-Yel) Urine Clarity Cloudy A (Clear/Hazy) Urine pH 5.5 (5.0-7.0) Ur Specific [place] 1.011 (1.001-1.035) Urine Protein 2+ A (Neg - Trace) Urine Glucose (UA) Negative (Negative) Assessment & Plan Assessment and plan (1) End-stage renal disease (ESRD): Status: Acute Assessment and plan: Pt has advanced kidney disease Need dialysis Dialysis need and procedure explained Pt agrees with dialysis and consented consult IR to place TD start HD after TDC placement anemia management arrange out pt dialysis at [facility] (2) Anemia: Status: Acute Assessment and plan: Give Epoetin alpha
[2024-10-29] MEDS: RINGERS LACTATED 1000 ML 1,000 ML 100 ML IV (18:47)
[2024-10-29 19:33] VITALS: BMI 29.6
[2024-10-29 19:46] LABS: Creatine Kinase 117 U/L (34-171)
[2024-10-29 19:52] LABS: Iron 47 mcg/dL (50-170); Percent Iron Saturation 15 % (20-55); Total Iron Binding Capacity 310 mcg/dL (250-425); Unsaturated Iron Binding 263 (225-295)
[2024-10-29 19:55] LABS: Folate 6.54 ng/mL (>5.38); Vitamin B12 546 pg/mL (211-911)
[2024-10-29 20:00] VITALS: BP 147/83; PULSE 83; RESP 15; TEMP 36.1; O2SAT 99
[2024-10-29 21:06] LABS: Hematocrit 21.5 % (36.0-46.0)
[2024-10-29 21:13] LABS: Hemoglobin 6.7 g/dL (12.0-16.0)
--- NOTE | 2024-10-29 21:19 | PC.NURSE ---
notified Dr Macias of pts post h&h critically low at 6.7/21.5
[2024-10-29 21:49] VITALS: BP 131/70; PULSE 81; RESP 17; TEMP 36.3; O2SAT 100
[2024-10-29 22:05] VITALS: BP 137/74; PULSE 79; RESP 18; TEMP 36.3; O2SAT 96
[2024-10-29 22:20] VITALS: BP 133/73; PULSE 81; RESP 18; TEMP 36.2; O2SAT 97
[2024-10-29] MEDS: ACETAMINOPHEN 325 MG TABLET 650 MG PO (22:45)
[2024-10-30] VITALS (12 sets, daily range): BP systolic 123–145; BP diastolic 60–99; PULSE 61–92; RESP 15–18; TEMP 36.1–36.4; O2SAT 92–99
[2024-10-30 03:46] LABS: Basophils # (Auto) 0.0 Thou/mm3 (0.0-0.2); Basophils % (Auto) 1 % (0-2.5); Eosinophils # (Auto) 0.1 Thou/mm3 (0.0-0.5); Eosinophils % (Auto) 4 % (0-10); Hematocrit 21.4 % (36.0-46.0); Immature Granulocytes Auto 0.01 Thou/mm3 (0.00-0.00); Lymphocytes # (Auto) 0.5 Thou/mm3 (1.0-4.8); Lymphocytes % (Auto) 16 % (10-50); Mean Corpuscular HGB Conc 32.2 g/dl (31.0-37.0); Mean Corpuscular Hemoglobin 28.3 pg (25.0-35.0); Mean Corpuscular Volume 88 fL (80-100); Monocytes # (Auto) 0.2 Thou/mm3 (0.0-0.8); Monocytes % (Auto) 7 % (0-12); Neutrophils # (Auto) 2.1 Thou/mm3 (1.8-7.7); Neutrophils % (Auto) 72 % (37-80); Nucleated Red Blood Cell # 0.00 Thou/mm3 (0.00-0.00); Nucleated Red Blood Cell % 0 /100 WBC (0); RDW Standard Deviation 47.6 fL (36.4-46.3); Red Blood Count 2.44 Miln/mm3 (4.00-5.20); White Blood Count 3.0 Thou/mm3 (3.6-11.0)
[2024-10-30 03:58] LABS: Hemoglobin 6.9 g/dL (12.0-16.0); Platelet Count 74 Thou/mm3 (140-440)
--- NOTE | 2024-10-30 03:59 | PC.NURSE ---
notified dr Macias of critically low h&h 6.11/16.. new orders to transfuse 1 unit prbc received.
[2024-10-30 04:05] LABS: Alanine Aminotransferase 17 U/L (10-49); Albumin, Serum 3.3 gm/dL (3.4-4.8); Albumin/Globulin Ratio 1.5 (1.2-2.2); Alkaline Phosphatase 129 U/L (46-116); Anion Gap 12 (7-16); Aspartate Amino Transferase 22 U/L (0-34); BUN/Creatinine Ratio 10 Ratio (12-20); Bilirubin,Total 0.5 mg/dL (0.3-1.2); Blood Urea Nitrogen 58 mg/dL (9-23); Calcium 8.1 mg/dL (8.3-10.6); Calcium (Corrected) 8.7 mg/dL (8.5-10.1); Carbon Dioxide 19.4 mMol/L (20.0-31.0); Cardiac Risk Estimate 2.3 RATIO (3.7-5.6); Chloride 115 mMol/L (98-107); Cholesterol 95 mg/dL (132-200); Creatinine (Component) 5.6 mg/dL (0.6-1.3); Estimated Creatinine Clearance 11.8 mL/min (>60); Globulin 2.2 gm/dL (2.3-3.5); Glucose 64 mg/dL (74-106); HDL Cholesterol 42 mg/dL (40-60); LDL Cholesterol,Calculated 46 mg/dL (0-130); Magnesium 2.3 mg/dL (1.6-2.6); Osmolality,Calculated 304 (275-295); Potassium 4.4 mMol/L (3.4-5.1); Sodium 146 mMol/L (136-145); Thyroid Stimulating Hormone 4.99 uIU/mL (0.55-4.78); Total Protein 5.5 gm/dL (5.7-8.2); Triglycerides 33 mg/dL (30-150); eGFR 8 See Note
[2024-10-30 04:38] LABS: Slide Review Platelets confirmed
--- NOTE | 2024-10-30 04:58 | PC.NURSE ---
[facility] downtime occured on 10/30/24 from [phone]
[2024-10-30 06:14] LABS: Hepatitis C Ab (Source Pt) Reactive (Non React)
[2024-10-30 08:37] LABS: Free T4 (Free Thyroxine) 0.90 ng/dL (0.89-1.76)
[2024-10-30 09:50] LABS: Hematocrit 25.2 % (36.0-46.0)
[2024-10-30 09:51] LABS: Hemoglobin 8.0 g/dL (12.0-16.0)
[2024-10-30 09:56] LABS: Albumin, Serum 3.3 gm/dL (3.4-4.8); Anion Gap 12 (7-16); BUN/Creatinine Ratio 9 Ratio (12-20); Blood Urea Nitrogen 52 mg/dL (9-23); Calcium 8.1 mg/dL (8.3-10.6); Calcium (Corrected) 8.7 mg/dL (8.5-10.1); Carbon Dioxide 19.0 mMol/L (20.0-31.0); Chloride 115 mMol/L (98-107); Creatinine (Component) 5.6 mg/dL (0.6-1.3); Estimated Creatinine Clearance 11.8 mL/min (>60); Glucose 96 mg/dL (74-106); Osmolality,Calculated 304 (275-295); Phosphorous 5.7 mg/dL (2.4-5.1); Potassium 4.0 mMol/L (3.4-5.1); Sodium 146 mMol/L (136-145); eGFR 8 See Note
[2024-10-30] MEDS: METHADONE SOLUTION 1 MG/1 ML 65 MG PO (09:59)
[2024-10-30] MEDS: cefTRIAXone/D5w 1gm IV premix 1 GM/50 ML BAG IV (10:00)
[2024-10-30] MEDS: TUBERCULIN PPD INJ 5 UNIT/0.1 ML DOSE ID (10:00)
[2024-10-30 11:03] LABS: Misc Send Out* See Sep Rpt
[2024-10-30 11:21] LABS: Hepatitis A Antibody IgM Non Reactive (Non React); Hepatitis B Core Antibody IgM Non Reactive (Non React); Hepatitis B Surface Antigen Non Reactive (Non React); Hepatitis C Antibody Reactive (Non React)
--- NOTE | 2024-10-30 12:46 | PC.SS ---
SS met with patient regarding her d/c plan. Pt is alert/oriented. Pt was admitted for Anemia and PANCHO. Pt confirmed demographic and contact information is correct on facesheet. Pt resides with her caregiver, Kip Becerra, phone# [phone]. Pt transfers with assistance into her wheelchair. Pt requires assistance with all ADLs. Pt named her friend, Jimmy Gonzalez, phone# [phone] medical decision maker if she is unable. SS provided verbal choices for d/c to home or SNF. Patient?s choice is to return home upon d/c. Pt refused SNF. Pt states she is not diabetic and is not on dialysis. Pt states she utilizes transportation through her health insurance. Pt states she followed up with PCP 1 week ago. Patient's tox screen was postive for meth use. Pt will require community resources at d/c. D/C plan: Return home Next of Kin: Jimmy Diallo, friend, phone# [phone] or Rebeka Veronica, dtr, phone# [phone] (share the same phone#) [facility] Address: Correct on facesheet
--- NOTE | 2024-10-30 13:29 | ESPR_ITS ---
<Statement entered by Ricardo Feliciano MD - 10/30/24 15:36> No acute overnight events. Patient denies any other complaints. Labs done this morning still showed hemoglobin 8, WBC count 3, platelet count 74, sodium 146, bicarb 9, creatinine 5.6, phosphorus 5.7. Noted to have mild iron deficiency anemia with normal B12 and folate use. Reticulocyte count is ordered in view of pancytopenia, pending peripheral smear. Associate Loan Officer, Dr. Muniz is consulted and he recommended that patient likely to have CKD,patient from the clinic and needs tunneled dialysis catheter for HD. Tunneled dialysis catheter insertion order is placed which will be done tomorrow. Will continue to monitor CBC. Fecal occult blood test is still pending. Will follow-up with the results. I have personally seen and examined the patient, agree with the residents assessment and plan Patient plan of care was discussed with the attending physician, Dr. Dorothea Feliciano, PGY2 Documentation for date of: 10/30/24 Subjective Subjective Interval history: Overnight, hemoglobin persistently low despite 2 unit pRBC on 10/29, transfuse 1 unit repeat H&H 8.0/.2. This morning complained of inability to void urine. Ordered Kohli catheter yesterday but was not placed. Reordered today was placed. Post void volume approximately 600 cc in bag. Consult with nephrology Dr. Marquez, suspects progressive chronic kidney disease. Will place dialysis catheter today. Will arrange dialysis at dialysis unit [facility] ([facility] Continue IV ceftriaxone for GNR UTI. Pending final urine culture studies. Pending blood cultures. Likely has anemia of chronic disease, secondary to CKD. Exam Vital Signs Temp Pulse Resp BP Pulse Ox O2 Del Method 97.5 F 79 17 135/66 H 95 Room Air 10/30/24 12:00 10/30/24 12:00 10/30/24 12:00 10/30/24 12:10/30/24 12:10/30/24 12:00 Narrative Exam Physical Exam General: Awake and in no acute distress. Conversational. Appears older than stated age. Bedbound. HEENT: Normocephalic, atraumatic, mucous membranes moist. Heart: Regular rate and rhythm, normal S1 and S2, no murmurs. Lungs: Clear to auscultation with no wheezing or crackles. Abdomen: Soft, nondistended, nontender, positive bowel sounds. No guarding or rebound tenderness. Neurologic: Alert and oriented x3, no gross neurological deficit, and patient able to move upper extremities. Unable to move lower extremities. All extremities appear contracted. Extremities: 1+ pitting edema bilaterally, extending to knees. Skin: Noted rash on lower extremities and flaking with chronic skin changes - induration. Multiple sites of ecchymoses on forearms. Objective Labs 10/31/24 07:34 10/31/24 07:34 Labs: Laboratory Results - last 24 hr 10/29/24 10/29/24 10/29/24 13:15 14:24 15:04 WBC 3.1 L RBC 2.35 L Hgb 6.6 L* Hct 21.3 L* MCV 91 MCH 28.1 MCHC 31.0 RDW Std Deviation 50.8 H Plt Count 78 L Neut % (Auto) 75 Lymph % (Auto) 13 [place] % (Auto) 8 Eos % (Auto) 4 Baso % (Auto) 0 Neut # (Auto) 2.3 Lymph # (Auto) 0.4 L [place] # (Auto) 0.2 Eos # (Auto) 0.1 Baso # (Auto) 0.0 Immature Gran # (Auto) 0.02 H Absolute Nucleated RBC 0.00 Immature Gran % 1 H Nucleated RBC % 0 Smear Path Review Sent to Pathologist PT 11.6 INR 1.1 APTT 24.4 Sodium 146 H Potassium 4.3 Chloride 113 H Carbon Dioxide 19.0 L Anion Gap 14 BUN 57 H Creatinine 5.8 H* Estim Creat Clear Calc 11.6 L eGFR 8 L* BUN/Creatinine Ratio 10 L Glucose [address] Glu mg/dL Hemoglobin A1c Calculated Osmolality 306 H Lactic Acid Calcium 8.8 Corrected Calcium 9.1 Phosphorus Magnesium Iron TIBC Iron Saturation Unsat Iron Binding Total Bilirubin 0.4 AST 23 ALT 18 Alkaline Phosphatase 143 H Total Creatine Kinase Troponin I < 0.020 B-Natriuretic Peptide 197 H Total Protein 6.0 Albumin 3.6 Globulin 2.4 Albumin/Globulin Ratio 1.5 Triglycerides Cholesterol LDL Cholesterol, Calc HDL Cholesterol Cholesterol/HDL Ratio Vitamin B12 Folate Procalcitonin TSH Free T4 Ur Collection Type Clean Catch Urine Color Lt-Yellow Urine Clarity Cloudy A Urine pH 5.5 Ur Specific [place] 1.011 Urine Protein 2+ A Urine Glucose (UA) Negative Urine Ketones Negative Urine Blood 3+ A Urine Nitrite Negative Urine Bilirubin Negative Urine Urobilinogen (Auto) Negative Ur Leukocyte Esterase Positive Urine RBC 114 H Urine WBC 208 H Ur Squamous Epith Cells 10 H Amorphous Crystals Present A Urine Bacteria 2+ A Ur Culture Indicated? Yes Urine Opiates Screen Positive A Urine Fentanyl Screen Negative Ur Barbiturates Screen Negative U Amphetamin/Meth Scrn Positive A U Benzodiazepines Scrn Negative U Cocaine Metab Screen Negative U Marijuana (THC) Screen Positive A Hepatitis A IgM Ab Hep Bs Antigen Hep B Core IgM Ab Hepatitis C Antibody Misc Test Result Platelets confirmed Blood Type Antibody Screen Crossfltch Blood Bank Wristband ID 10/29/24 10/29/24 10/29/24 16:00 16:05 17:09 WBC RBC Hgb Hct MCV MCH MCHC RDW Std Deviation Plt Count Neut % (Auto) Lymph % (Auto) [place] % (Auto) Eos % (Auto) Baso % (Auto) Neut # (Auto) Lymph # (Auto) [place] # (Auto) Eos # (Auto) Baso # (Auto) Immature Gran # (Auto) Absolute Nucleated RBC Immature Gran % Nucleated RBC % Smear Path Review PT INR APTT Sodium Potassium Chloride Carbon Dioxide Anion Gap BUN Creatinine Estim Creat Clear Calc eGFR BUN/Creatinine Ratio Glucose Estimated Ave Glu mg/dL Hemoglobin A1c Calculated Osmolality Lactic Acid 1.2 Calcium Corrected Calcium Phosphorus Magnesium Iron 47 L TIBC 310 Iron Saturation 15 L Unsat Iron Binding 263 Total Bilirubin AST ALT Alkaline Phosphatase Total Creatine Kinase 117 Troponin I B-Natriuretic Peptide Total Protein Albumin Globulin Albumin/Globulin Ratio Triglycerides Cholesterol LDL Cholesterol, Calc HDL Cholesterol Cholesterol/HDL Ratio Vitamin B12 546 Folate 6.54 Procalcitonin 0.35 TSH Free T4 Ur Collection Type Urine Color Urine Clarity Urine pH Ur Specific [place] Urine Protein Urine Glucose (UA) Urine Ketones Urine Blood Urine Nitrite Urine Bilirubin Urine Urobilinogen (Auto) Ur Leukocyte Esterase Urine RBC Urine WBC Ur Squamous Epith Cells Amorphous Crystals Urine Bacteria Ur Culture Indicated? Urine Opiates Screen Urine Fentanyl Screen Ur Barbiturates Screen U Amphetamin/Meth Scrn U Benzodiazepines Scrn U Cocaine Metab Screen U Marijuana (THC) Screen Hepatitis A IgM Ab Hep Bs Antigen Hep B Core IgM Ab Hepatitis C Antibody Misc Test Result Blood Type Antibody Screen Crossfltch Blood Bank Wristband ID 10/29/24 10/29/24 10/30/24 18:10 19:07 03:11 WBC 3.0 L RBC 2.44 L Hgb 6.7 L* 6.9 L* Hct 21.5 L* 21.4 L* MCV 88 MCH 28.3 MCHC 32.2 RDW Std Deviation 47.6 H Plt Count 74 L Neut % (Auto) 72 Lymph % (Auto) 16 [place] % (Auto) 7 Eos % (Auto) 4 Baso % (Auto) 1 Neut # (Auto) 2.1 Lymph # (Auto) 0.5 L [place] # (Auto) 0.2 Eos # (Auto) 0.1 Baso # (Auto) 0.0 Immature Gran # (Auto) 0.01 H Absolute Nucleated RBC 0.00 Immature Gran % 0 Nucleated RBC % 0 Smear Path Review PT INR APTT Sodium 146 H Potassium 4.4 Chloride 115 H Carbon Dioxide 19.4 L Anion Gap 12 BUN 58 H Creatinine 5.6 H* Estim Creat Clear Calc 11.8 L eGFR 8 L* BUN/Creatinine Ratio 10 L Glucose [address] Glu mg/dL Cancelled Hemoglobin A1c Cancelled Calculated Osmolality 304 H Lactic Acid Calcium 8.1 L Corrected Calcium 8.7 Phosphorus Magnesium 2.3 Iron TIBC Iron Saturation Unsat Iron Binding Total Bilirubin 0.5 AST 22 ALT 17 Alkaline Phosphatase 129 H Total Creatine Kinase Troponin I B-Natriuretic Peptide Total Protein 5.5 L Albumin 3.3 L Globulin 2.2 L Albumin/Globulin Ratio 1.5 Triglycerides 33 Cholesterol 95 L LDL Cholesterol, Calc 46 HDL Cholesterol 42 Cholesterol/HDL Ratio 2.3 L Vitamin B12 Folate Procalcitonin TSH 4.99 H Free T4 0.90 Ur Collection Type Urine Color Urine Clarity Urine pH Ur Specific [place] Urine Protein Urine Glucose (UA) Urine Ketones Urine Blood Urine Nitrite Urine Bilirubin Urine Urobilinogen (Auto) Ur Leukocyte Esterase Urine RBC Urine WBC Ur Squamous Epith Cells Amorphous Crystals Urine Bacteria Ur Culture Indicated? Urine Opiates Screen Urine Fentanyl Screen Ur Barbiturates Screen U Amphetamin/Meth Scrn U Benzodiazepines Scrn U Cocaine Metab Screen U Marijuana (THC) Screen Hepatitis A IgM Ab Hep Bs Antigen Hep B Core IgM Ab Hepatitis C Antibody Reactive A Misc Test Result Platelets confirmed Blood Type A Positive Antibody Screen NEGATIVE Crossmatch See Detail Blood Bank Wristband ID Yes 10/30/24 08:59 WBC RBC Hgb 8.0 L Hct 25.2 L MCV MCH MCHC RDW Std Deviation Plt Count Neut % (Auto) Lymph % (Auto) [place] % (Auto) Eos % (Auto) Baso % (Auto) Neut # (Auto) Lymph # (Auto) [place] # (Auto) Eos # (Auto) Baso # (Auto) Immature Gran # (Auto) Absolute Nucleated RBC Immature Gran % Nucleated RBC % Smear Path Review PT INR APTT Sodium 146 H Potassium 4.0 Chloride 115 H Carbon Dioxide 19.0 L Anion Gap 12 BUN 52 H Creatinine 5.6 H* Estim Creat Clear Calc 11.8 L eGFR 8 L* BUN/Creatinine Ratio 9 L Glucose [address] Glu mg/dL Hemoglobin A1c Calculated Osmolality 304 H Lactic Acid Calcium 8.1 L Corrected Calcium 8.7 Phosphorus 5.7 H Magnesium Iron TIBC Iron Saturation Unsat Iron Binding Total Bilirubin AST ALT Alkaline Phosphatase Total Creatine Kinase Troponin I B-Natriuretic Peptide Total Protein Albumin 3.3 L Globulin Albumin/Globulin Ratio Triglycerides Cholesterol LDL Cholesterol, Calc HDL Cholesterol Cholesterol/HDL Ratio Vitamin B12 Folate Procalcitonin TSH Free T4 Ur Collection Type Urine Color Urine Clarity Urine pH Ur Specific [place] Urine Protein Urine Glucose (UA) Urine Ketones Urine Blood Urine Nitrite Urine Bilirubin Urine Urobilinogen (Auto) Ur Leukocyte Esterase Urine RBC Urine WBC Ur Squamous Epith Cells Amorphous Crystals Urine Bacteria Ur Culture Indicated? Urine Opiates Screen Urine Fentanyl Screen Ur Barbiturates Screen U Amphetamin/Meth Scrn U Benzodiazepines Scrn U Cocaine Metab Screen U Marijuana (THC) Screen Hepatitis A IgM Ab Non Reactive Hep Bs Antigen Non Reactive Hep B Core IgM Ab Non Reactive Hepatitis C Antibody Reactive A Misc Test Result Blood Type Antibody Screen Crossmatch Blood Bank Wristband ID Quality Measures Quality Measures none Advance care planning discussed with:: patient Assessment & Plan Assessment Current Active Medications: Generic Name Dose Route Start Last Admin Trade Name Freq PRN Reason Stop Dose Admin Acetaminophen 650 mg 10/29/24 16:29 Acetaminophen 325 Mg Tablet PO 11/28/24 16:28 Q6H PRN Temp >100.3 or mild pain 1-3 Ceftriaxone Sodium/Dextrose 1 gm in 50 mls @ 100 mls/hr 10/30/24 09:00 10/30/24 10:00 Rocephin/D5w 1gm Iv Premix IV 11/06/24 08:59 100 mls/hr QDAY SIDRA Administration Methadone HCl 65 mg 10/31/24 09:00 Methadone Hcl 10 Mg Tablet PO 11/05/24 08:59 QDAY SIDRA Protocol Ondansetron HCl 4 mg 10/29/24 16:29 Ondansetron Inj 2 Mg/Ml Inj 2 Ml IVP 11/28/24 16:28 Q6H PRN NAUSEA OR VOMITING Protocol Sennosides 1 tab 10/30/24 09:00 10/30/24 09:59 Senna Tablet PO 11/29/24 08:59 1 tab QDAY SIDRA Administration Protocol Plan Patient is 64-year-old female with PMH of bedbound for the past 2 years, hypertension, chronic back pain, methadone likely secondary to history of meth use, hepatitis C treated with interferon therapy (2001), pancreatic mass, CKD who presented on 10/29 for generalized weakness and worsening kidney functions per last week's lab work, admitted for worsening renal function and dialysis initiation. #Acute on chronic renal disease versus CKD Presented with worsening renal functions on regular lab check up. Denies burning micturition, change in urine output, nausea, vomiting, diarrhea episodes, no change in diet and endorsed that she is taking adequate fluids. Endorses lower extremity swelling for the past 2 months. Note patient has been bedbound for the past 2 years. Hepatitis C treated with interferon therapy (2001), Hep C Ab positive. Baseline creatinine 2.5 in 2022, admission creatinine 5.8. Renal US 10/30 shows bilateral cortical renal thinning, moderate bilateral scar formation, bilateral renal cysts. No bladder mass. Suspect progressive chronic kidney disease due to history of hypertension and diabetes mellitus complicated with diabetic peripheral neuropathy and peripheral arterial disease. All under control without medications. Plan: - Kohli catheter placed - Strict I's and O's - Associate Loan Officer Dr. Muniz consulted, appreciate recommendations: dialysis catheter placement given lack of improvement in renal function despite IV fluid resuscitation - TB testing - HCV RNA, PCR, QN - Avoid nephrotoxic medications - Renally dose medications #Hyponatremia #Hypochloremia Admission sodium 146, chloride 113. Likely mild dehydration. Bedside US unable to assess IVC. S/p IV LR 1 L without much improvement. Plan: ? CTM electrolytes ? Dialysis as above #Metabolic acidosis #Normal anion gap A admission bicarb 19, likely in setting of renal failure. Normal anion gap. No lactic acidosis. On exam no acidotic breathing. Did not improve status post IV LR 1 L. Plan: ? CTM electrolytes ? Dialysis as above #GNR UTI UA on admission shows 2+ protein, 3+ blood, 114 RBC, 208 WBC, 2+ bacteria. Preliminary urine culture results grew gram-negative rods. Plan: - IV CFX 1g (10/29- - Pending final urine culture - Pending blood culture #Pancytopenia #Anemia of chronic kidney disease Admission WBC 3.1, hemoglobin 6.6, platelet 78,000. Total bilirubin 0.5. Liver enzymes within normal limits. Alk phos elevated at 129. Iron panel 10/25: Iron 47, TIBC 310 (WNL) iron saturation 15, unsat iron-binding 263. Likely anemia chronic disease. Denies melena or bloody stools, hemoptysis, hematuria. S/p total 3 unit pRBC (10/29). Plan: ? Pending peripheral smear ? FOBT #Meth use #Marijuana use disorder #Chronic back pain #Bedbound #Lower extremity paralysis #Chronic wounds Taking methadone 65 mg daily. Patient reports this is for her chronic back pain however based on amount possible history of meth use. UTOX positive for meth and marijuana. Plan: - fiscal services manager consulted - Continue methadone 65 mg daily for back pain - Consulted wound care Health Maintenance Disposition: med surg, initiating dialysis DVT prophylaxis: none in setting of worsening anemia and leaking wounds on legs GI prophylaxis: Zofran for nausea Diet: Renal CODE STATUS: DNR Patient plan of care was discussed with the resident, Dr. Feliciano, and attending physician, Dr. Piedra. Clare Ferro, PGY-1 Attending Provider Attestation/Addendum Evelio, Gracie Piedra, DO, attest that I was physically present for the [place] portions of the service and evaluated the patient with the resident and I reviewed and discussed the case with the resident and agree with the resident's findings and plans of care as documented above Patient seen and eval this a.m. She remains very tired. Renal function appears to be unchanged despite IV fluid hydration. Suspect that anemia may be secondary to chronic kidney disease and that this is her new baseline renal function with creatinine of 5.6. Patient received 3 units of PRBCs overnight due to anemia and now H&H is 8. Pending FOBT at this time. Case was discussed with nephrology and plans for tunneled dialysis catheter to be placed tomorrow. Patient is agreeable to dialysis. Patient is otherwise hemodynamically stable.
[2024-10-30] MEDS: EPOETIN ALFA-EPBX INJ 10,000 UNIT/ML VIAL (ESRD) 10000 UNIT SC (15:20)
[2024-10-31] VITALS (22 sets, daily range): BP systolic 118–152; BP diastolic 62–88; PULSE 70–95; RESP 12–18; TEMP 36.1–36.8; O2SAT 93–100
--- NOTE | 2024-10-31 | XR_ITS ---
Ultrasound-guided needle placement right internal jugular vein Permanent tunneled dialysis catheter insertion, percutaneous Fluoroscopy AP chest, portable, single view. Date and time of procedure: October 31, 2024 0936 hours INDICATIONS: Renal failure need for stat and long-term dialysis with permanent tunneled dialysis catheter Informed consent provided Technique: A timeout was completed verifying correct patient, procedure, site, positioning, and special equipment if applicable. The patient was placed in a dependent position appropriate for dialysis catheter placement based on the vein to be cannulated. The patient'sright neck was prepped and draped in sterile fashion. Maximum Sterile Barrier Technique used including cap, mask, sterile gown, sterile gloves, and sterile full body drape. If ultrasound technique used: sterile gel and sterile probe covers. Hand Hygiene performed using proper scrub, soap and water, or alcohol-based hand rub. 1% lidocaine was used to anesthetize the surrounding skin area The [employer] [place] portable ultrasound apparatus utilized to confirm patency of the right internal jugular vein, utilizing ultrasonographic guidance successful 21-gauge needle puncture into the right internal jugular vein Ultrasound images were recorded and stored. Vessel micropuncture was performed with 21-gauge needle. 0.18 wire guide is introduced into the vein. 0.18 wire is introduced into the vena cava under fluoroscopy. Subcutaneous tunnel formed in the upper chest. Permanent tunneled dialysis catheter placed in the subcutaneous tunnel. Dilators were introduced over the J-wire guide. Tunneled dialysis catheter is introduced through a dilator with venous sheath into the superior vena cava under fluoroscopic guidance. The catheter is sutured in place to the skin and a sterile dressing applied. Perfusion to the extremity distal to the point of catheter insertion is checked and found to be adequate Attending radiologist was present for the entire procedure Estimated blood loss4 cc. The patient tolerated the procedure well and there were no complications Impression: Successful ultrasound-guided needle placement right internal jugular vein Successful permanent tunneled dialysis catheter insertion, percutaneous Fluoroscopy 0.2 minute radiation dose 11.03 milligray 1 spot fluoroscopic chest film. AP chest performed at completion procedure demonstrates satisfactory position dialysis catheter. May use dialysis catheter.
[2024-10-31 08:21] LABS: Basophils # (Auto) 0.0 Thou/mm3 (0.0-0.2); Basophils % (Auto) 1 % (0-2.5); Eosinophils # (Auto) 0.2 Thou/mm3 (0.0-0.5); Eosinophils % (Auto) 5 % (0-10); Hematocrit 26.3 % (36.0-46.0); Immature Granulocytes Auto 0.01 Thou/mm3 (0.00-0.00); Immature Reticulocyte Fraction 15.9 % (3.0-15.9); Lymphocytes # (Auto) 0.5 Thou/mm3 (1.0-4.8); Lymphocytes % (Auto) 17 % (10-50); Mean Corpuscular HGB Conc 31.6 g/dl (31.0-37.0); Mean Corpuscular Hemoglobin 27.9 pg (25.0-35.0); Mean Corpuscular Volume 88 fL (80-100); Monocytes # (Auto) 0.3 Thou/mm3 (0.0-0.8); Monocytes % (Auto) 10 % (0-12); Neutrophils # (Auto) 2.0 Thou/mm3 (1.8-7.7); Neutrophils % (Auto) 68 % (37-80); Nucleated Red Blood Cell # 0.00 Thou/mm3 (0.00-0.00); Nucleated Red Blood Cell % 0 /100 WBC (0); RDW Standard Deviation 49.2 fL (36.4-46.3); Red Blood Count 2.98 Miln/mm3 (4.00-5.20); Reticulocyte % (Auto) 2.1 % (0.5-1.5); Reticulocyte Absolute Auto 62.3 Biln/L (25.0-75.0); Reticulocyte Hgb Content 31.3 pg (28.0-35.0); White Blood Count 3.0 Thou/mm3 (3.6-11.0)
[2024-10-31 08:40] LABS: INR 1.1 (0.9-1.3); Partial Thromboplastin Time 26.8 Seconds (22.0-36.0); Prothrombin Time 12.4 Seconds (9.0-12.2)
[2024-10-31 08:52] LABS: Alanine Aminotransferase 15 U/L (10-49); Albumin, Serum 3.2 gm/dL (3.4-4.8); Albumin/Globulin Ratio 1.4 (1.2-2.2); Alkaline Phosphatase 130 U/L (46-116); Anion Gap 12 (7-16); Aspartate Amino Transferase 19 U/L (0-34); BUN/Creatinine Ratio 7 Ratio (12-20); Bilirubin,Total 0.4 mg/dL (0.3-1.2); Blood Urea Nitrogen 39 mg/dL (9-23); Calcium 8.2 mg/dL (8.3-10.6); Calcium (Corrected) 8.8 mg/dL (8.5-10.1); Carbon Dioxide 18.0 mMol/L (20.0-31.0); Chloride 115 mMol/L (98-107); Creatinine (Component) 5.6 mg/dL (0.6-1.3); Estimated Creatinine Clearance 11.8 mL/min (>60); Globulin 2.3 gm/dL (2.3-3.5); Glucose 62 mg/dL (74-106); Osmolality,Calculated 296 (275-295); Potassium 4.3 mMol/L (3.4-5.1); Sodium 145 mMol/L (136-145); Total Protein 5.5 gm/dL (5.7-8.2); eGFR 8 See Note
[2024-10-31 09:03] LABS: Hemoglobin 8.3 g/dL (12.0-16.0); Platelet Count 69 Thou/mm3 (140-440)
[2024-10-31] MEDS: METHADONE HCL 10 MG TABLET 65 MG PO (09:26)
[2024-10-31] MEDS: cefTRIAXone/D5w 1gm IV premix 1 GM/50 ML BAG IV (09:29)
--- NOTE | 2024-10-31 09:30 | PC.NURSE ---
[id number] Patient to IR via gurney in stable condition.
--- NOTE | 2024-10-31 09:55 | PC.SS ---
Follow up note: Pt is possible new diallysis pt with Dr. Marquez. Dialysis cath placed. Pt will return home upon dc.
[2024-10-31] MEDS: fentaNYL CIT INJ 50 mCg/ML AMP 2ML 25 MCG IVP (10:09)
[2024-10-31] MEDS: HEPARIN SOD LOCK SYR 100 UNIT/ML 500 UNIT STFIELD (10:11)
[2024-10-31] MEDS: LIDOCAINE INJ PF 1% 30 ML VIAL 10 ML INFL (10:11)
[2024-10-31] MEDS: HEPARIN SOD INJ 1000 UNIT/ML VIAL 3800 UNIT INDWELLCAT (10:35)
--- NOTE | 2024-10-31 11:05 | ESPR_ITS ---
<Statement entered by Ricardo Feliciano MD - 11/02/24 16:29> No acute overnight events. Patient denies any other complaints. Underwent tunneled Alysis catheter placement this morning successfully. Vitals are stable. Urine cultures came back positive for E. coli which is pansensitive. Ceftriaxone was stopped and started on Keflex 250 mg once daily from tomorrow. Will be started on dialysis from today and will follow-up with the social media senior associate for dialysis chair placement I have personally seen and examined the patient, agree with residents assessment and plan Patient plan of care was discussed with the attending physician, Dr. Lyudmila Feliciano, PGY2 Documentation for date of: 10/31/24 Subjective Subjective Interval history: No acute events overnight. Patient is scheduled for tunneled dialysis catheter placement this morning. Catheter was successfully placed in right IJ. No complaints. Kohli catheter in place, draining red urine. Urine culture positive for E. coli pansensitive, will transition IV ceftriaxone to Keflex 500 mg daily starting tomorrow. Will monitor after 2-3 dialysis sessions. Anticipate discharge earliest on Sunday, arranging outpatient dialysis at that center [place]. Exam Vital Signs Temp Pulse Resp BP Pulse Ox O2 Del Method O2 Flow Rate 97.9 F 75 12 152/80 H 100 Nasal Cannula 3 10/31/24 08:00 10/31/24 10:20 10/31/24 10:20 10/31/24 10:20 10/31/24 10:20 10/31/24 10:20 10/31/24 10:20 Narrative Exam Physical Exam General: Awake and in no acute distress. Conversational. Appears older than stated age. Bedbound. HEENT: Normocephalic, atraumatic, mucous membranes moist. Heart: Regular rate and rhythm, normal S1 and S2, no murmurs. Lungs: Clear to auscultation with no wheezing or crackles. Abdomen: Soft, nondistended, nontender, positive bowel sounds. No guarding or rebound tenderness. Neurologic: Alert and oriented x3, no gross neurological deficit, and patient able to move upper extremities. Unable to move lower extremities. All extremities appear contracted. Extremities: 1+ pitting edema bilaterally, extending to knees. Skin: Noted rash on lower extremities and flaking with chronic skin changes - induration. Multiple sites of ecchymoses on forearms. Objective Labs 11/03/24 05:15 11/03/24 05:15 Labs: Laboratory Results - last 24 hr 10/30/24 10/31/24 08:59 07:34 WBC 3.0 L RBC 2.98 L Hgb 8.3 L Hct 26.3 L MCV 88 MCH 27.9 MCHC 31.6 RDW Std Deviation 49.2 H Plt Count 69 L Neut % (Auto) 68 Lymph % (Auto) 17 Yancey % (Auto) 10 Eos % (Auto) 5 Baso % (Auto) 1 Neut # (Auto) 2.0 Lymph # (Auto) 0.5 L Yancey # (Auto) 0.3 Eos # (Auto) 0.2 Baso # (Auto) 0.0 Immature Gran # (Auto) 0.01 H Absolute Nucleated RBC 0.00 Immature Gran % 0 Nucleated RBC % 0 Retic Count (auto) 2.1 H Absolute Retic 62.3 Immature Retic Fraction 15.9 Retic Hgb Content CHr 31.3 PT 12.4 H INR 1.1 APTT 26.8 Sodium 145 Potassium 4.3 Chloride 115 H Carbon Dioxide 18.0 L Anion Gap 12 BUN 39 H Creatinine 5.6 H* Estim Creat Clear Calc 11.8 L eGFR 8 L* BUN/Creatinine Ratio 7 L Glucose 62 L Calculated Osmolality 296 H Calcium 8.2 L Corrected Calcium 8.8 Total Bilirubin 0.4 AST 19 ALT 15 Alkaline Phosphatase 130 H Total Protein 5.5 L Albumin 3.2 L Globulin 2.3 Albumin/Globulin Ratio 1.4 Hepatitis A IgM Ab Non Reactive Hep Bs Antigen Non Reactive Hep B Core IgM Ab Non Reactive Hepatitis C Antibody Reactive A Quality Measures Quality Measures none Advance care planning discussed with:: patient Assessment & Plan Assessment Current Active Medications: Generic Name Dose Route Start Last Admin Trade Name Freq PRN Reason Stop Dose Admin Acetaminophen 650 mg 10/29/24 16:29 Acetaminophen 325 Mg Tablet PO 11/28/24 16:28 Q6H PRN Temp >100.3 or mild pain 1-3 Cephalexin HCl 250 mg 11/01/24 09:00 Cephalexin 250 Mg Capsule PO 11/08/24 08:59 QDAY SIDRA Methadone HCl 65 mg 10/31/24 09:00 10/31/24 09:26 Methadone Hcl 10 Mg Tablet PO 11/05/24 08:59 65 mg QDAY SIDRA Administration Protocol Ondansetron HCl 4 mg 09/03/25 16:29 Ondansetron Inj 2 Mg/Ml Inj 2 Ml IVP 11/28/24 16:28 Q6H PRN NAUSEA OR VOMITING Protocol Sennosides 1 tab 10/30/24 09:00 10/31/24 09:28 Senna Tablet PO 11/29/24 08:59 1 tab QDAY SIDRA Administration Protocol Plan Patient is 64-year-old female with PMH of bedbound for the past 2 years, hypertension, chronic back pain, methadone likely secondary to history of meth use, hepatitis C treated with interferon therapy (2001), pancreatic mass, CKD who presented on 10/29 for generalized weakness and worsening kidney functions per last week's lab work, admitted for worsening renal function and dialysis initiation. #Renal Failure #Dialysis Presented with worsening renal functions on regular lab check up. Denies burning micturition, change in urine output, nausea, vomiting, diarrhea episodes, no change in diet and endorsed that she is taking adequate fluids. Endorses lower extremity swelling for the past 2 months. Note patient has been bedbound for the past 2 years. Hepatitis C treated with interferon therapy (2001), Hep C Ab positive. Baseline creatinine 2.5 in 2022, admission creatinine 5.8. Renal US 10/30 shows bilateral cortical renal thinning, moderate bilateral scar formation, bilateral renal cysts. No bladder mass. Suspect progressive chronic kidney disease due to history of hypertension and diabetes mellitus complicated with diabetic peripheral neuropathy and peripheral arterial disease. All under control without medications. Plan: - Kohli catheter in place - Dialysis catheter placed in right IJ - Strict I's and O's - Head Sulfide Operator Dr. Marquez consulted, appreciate recommendations: Tunnel dialysis catheter placement, monitor after 2-3 dialysis sessions before discharge - TB testing - HCV RNA, PCR, QN - Avoid nephrotoxic medications - Renally dose medications #Hyponatremia #Hypochloremia Admission sodium 146, chloride 113. Likely mild dehydration. Bedside US unable to assess IVC. S/p IV LR 1 L without much improvement. Plan: ? CTM electrolytes ? Dialysis as above #Metabolic acidosis #Normal anion gap A admission bicarb 19, likely in setting of renal failure. Normal anion gap. No lactic acidosis. On exam no acidotic breathing. Did not improve status post IV LR 1 L. Plan: ? CTM electrolytes ? Dialysis as above #E coli UTI UA on admission shows 2+ protein, 3+ blood, 114 RBC, 208 WBC, 2+ bacteria. Preliminary urine culture results grew gram-negative rods. Urine culture positive for E. coli, pansensitive. Plan: - Discontinue IV CFX 1g (10/29-10/31) - Start on Keflex 500 mg starting tomorrow 9AM #Pancytopenia #Anemia of chronic kidney disease Admission WBC 3.1, hemoglobin 6.6, platelet 78,000. Total bilirubin 0.5. Liver enzymes within normal limits. Alk phos elevated at 129. Iron panel 10/25: Iron 47, TIBC 310 (WNL) iron saturation 15, unsat iron-binding 263. Likely anemia chronic disease. Denies melena or bloody stools, hemoptysis, hematuria. S/p total 3 unit pRBC (10/29). Plan: ? Pending peripheral smear ? Pending FOBT #Meth use #Marijuana use disorder #Chronic back pain #Bedbound #Lower extremity paralysis #Chronic wounds Taking methadone 65 mg daily. Reports 10-year history of meth use in her 30s. Denies any current meth use. Follows with methadone clinic in [place], has been working to wean down methadone use. Patient reports this is for her chronic back pain however based on amount possible history of meth use. UTOX positive for meth and marijuana. Plan: - security services specialist consulted - Continue methadone 65 mg daily - Wound care Health Maintenance Disposition: med surg, dialysis DVT prophylaxis: none in setting of worsening anemia and leaking wounds on legs GI prophylaxis: Zofran for nausea Diet: Renal CODE STATUS: DNR Patient plan of care was discussed with the resident, Dr. Feliciano, and attending physician, Dr. Piedra. Clare Ferro, PGY-1 Attending Provider Attestation/Addendum Face to face evaluation was performed by me. I have personally seen and examined the patient. I discussed the assessment and plan with the entire medicine team. I reviewed available medical records, imaging studies, laboratory results. I agree with the above subjective data, objective findings, assessment and plan except as corrected by me or noted below Acute renal failure on CKD stage IV-V now requiring hemodialysis Chronic methadone usage Essential hypertension Continue with dialysis per nephrology Of chronic kidney disease anemia , thrombocytopenia, neutropenia?pancytopenia with - Monitor vitals clinical course closely outpatient dialysis chair establishment More than > 30 minutes spent on the encounter
[2024-10-31 11:38] LABS: Slide Review Platelets confirmed
--- NOTE | 2024-10-31 15:07 | PC.SS ---
Pt received her 1st dialysis session today. SS has faxed inquiry to [facility] on [address]. SS has also sent dialysis inquiry on [facility].
--- NOTE | 2024-10-31 16:34 | PC.NURSE ---
Called and spoke with Elvia in echo, states will add patient to list to do.
[2024-10-31] MEDS: HEPARIN SOD INJ 1000 UNIT/ML VIAL 10 ML 3800 UNIT INDWELLCAT (17:24)
--- NOTE | 2024-10-31 18:20 | PC.NURSE ---
Removed Kohli catheter 1113, patient has not voided. Bladder scan approximately 192mL. Called Dr. Coreas. Order received to do bladder scan every 6 hours.
[2024-11-01] VITALS (18 sets, daily range): BP systolic 118–146; BP diastolic 62–79; PULSE 71–101; RESP 16–18; TEMP 36.1–36.5; O2SAT 92–100
[2024-11-01 05:37] LABS: Basophils # (Auto) 0.0 Thou/mm3 (0.0-0.2); Basophils % (Auto) 1 % (0-2.5); Eosinophils # (Auto) 0.1 Thou/mm3 (0.0-0.5); Eosinophils % (Auto) 4 % (0-10); Hematocrit 26.5 % (36.0-46.0); Immature Granulocytes Auto 0.02 Thou/mm3 (0.00-0.00); Lymphocytes # (Auto) 0.5 Thou/mm3 (1.0-4.8); Lymphocytes % (Auto) 18 % (10-50); Mean Corpuscular HGB Conc 31.3 g/dl (31.0-37.0); Mean Corpuscular Hemoglobin 27.7 pg (25.0-35.0); Mean Corpuscular Volume 88 fL (80-100); Monocytes # (Auto) 0.4 Thou/mm3 (0.0-0.8); Monocytes % (Auto) 12 % (0-12); Neutrophils # (Auto) 2.0 Thou/mm3 (1.8-7.7); Neutrophils % (Auto) 66 % (37-80); Nucleated Red Blood Cell # 0.00 Thou/mm3 (0.00-0.00); Nucleated Red Blood Cell % 0 /100 WBC (0); RDW Standard Deviation 50.4 fL (36.4-46.3); Red Blood Count 3.00 Miln/mm3 (4.00-5.20); White Blood Count 3.0 Thou/mm3 (3.6-11.0)
[2024-11-01 05:40] LABS: Hemoglobin 8.3 g/dL (12.0-16.0); Platelet Count 56 Thou/mm3 (140-440)
[2024-11-01 06:08] LABS: Alanine Aminotransferase 14 U/L (10-49); Albumin, Serum 3.2 gm/dL (3.4-4.8); Albumin/Globulin Ratio 1.4 (1.2-2.2); Alkaline Phosphatase 131 U/L (46-116); Anion Gap 14 (7-16); Aspartate Amino Transferase 20 U/L (0-34); BUN/Creatinine Ratio 9 Ratio (12-20); Bilirubin,Total 0.4 mg/dL (0.3-1.2); Blood Urea Nitrogen 41 mg/dL (9-23); Calcium 8.5 mg/dL (8.3-10.6); Calcium (Corrected) 9.1 mg/dL (8.5-10.1); Carbon Dioxide 22.4 mMol/L (20.0-31.0); Chloride 110 mMol/L (98-107); Creatinine (Component) 4.8 mg/dL (0.6-1.3); Estimated Creatinine Clearance 13.8 mL/min (>60); Globulin 2.3 gm/dL (2.3-3.5); Glucose 74 mg/dL (74-106); Magnesium 2.2 mg/dL (1.6-2.6); Osmolality,Calculated 299 (275-295); Phosphorous 4.9 mg/dL (2.4-5.1); Potassium 4.1 mMol/L (3.4-5.1); Sodium 146 mMol/L (136-145); Total Protein 5.5 gm/dL (5.7-8.2); eGFR 10 See Note
[2024-11-01 06:17] LABS: Slide Review Platelets confirmed
--- NOTE | 2024-11-01 06:21 | PC.NURSE ---
JADEN Wood attempted ton contact Dr. Mcguire regarding critical GFR and creatinine, but Dr. Mcguire did not answer.
[2024-11-01] MEDS: METHADONE HCL 10 MG TABLET 65 MG PO (10:53)
--- NOTE | 2024-11-01 11:37 | PC.NURSE ---
Patient came back from dialysis with right perma cath bleeding. life support technician did dressing change and used sorbaseal. I notified Dr. Coreas of patient of bleeding. I will apply a sandbag for pressure. Will continue to monitor patient for bleeding
--- NOTE | 2024-11-01 12:39 | PC.SS ---
Rounding: Pending PPD results to send to KRISTIN Powers for chair time. PPD to be read tomorrow and forwarded to KRISTIN Powers at F-# [phone]
--- NOTE | 2024-11-01 13:18 | PD.RESEVENT ---
Documentation for date of: 11/01/24 Event Note Event Note: Rapid Response Room:?362 Time: 13:18 Reason for Call:?Bleeding from dialysis catheter site Patient presentation:?Patient was resting in bed without acute distress. Dialysis catheter site on right was noted to be bloody. Patient had denied use of 5 pound sandbag earlier today after dialysis. Patient vitals: Temperature 97F, BP 39/79, HR 79, RR 16, 98% O2 sat on room air Events:? - Clots were noted upon removal of some bandages around dialysis catheter site. - Gave patient 5 pound sandbag. - Nursing staff obtained surgiseal dressing, which successfully resolved dialysis catheter site bleeding. Assessment:?Bleeding from dialysis catheter site New orders:? - PT/INR - PTT - CBC - One pRBC ordered if patient requires transfusion - D50 amp Patient was discussed with the attending, Dr. Coreas, and senior resident Dr. Feliciano , PGY-2. Ladarius Gastelum, PGY-1 Face to face evaluation was performed by me. I have personally seen and examined the patient. I discussed the assessment and plan with the entire medicine team. I reviewed available medical records, imaging studies, laboratory results. I agree with the above subjective data, objective findings, assessment and plan except as corrected by me or noted below Oozing/bleeding around tunneled dialysis catheter, dressing changed by STRUCTURED CABLING TECHNICIAN
--- NOTE | 2024-11-01 13:18 | PC.NURSE ---
CALLED A RAPID RESPONSE ON PATIENT. PATIENT DIALYSIS CATHETER BLEEDING. JASMIN STANLEY FROM ICU CAME AND DID DIALYSIS DRESSING CHANGE. TOOK PATIENTS BLOOD SUGAR IT WAS 63. GAVE PATIENT AN AMP. WILL CONTINUE TO MONITOR PATIENT
[2024-11-01] MEDS: DEXTROSE 50%-WATER INJ 50 ML SYRINGE IVP (13:31)
--- NOTE | 2024-11-01 14:33 | PC.SS ---
Rounding: SHOW JUMPING INSTRUCTOR called today, plan for HD tomorrow. Pending HD chair time op.
[2024-11-01 14:34] LABS: INR 1.1 (0.9-1.3); Partial Thromboplastin Time 24.0 Seconds (22.0-36.0); Prothrombin Time 12.3 Seconds (9.0-12.2)
[2024-11-01 17:51] LABS: Basophils # (Auto) 0.0 Thou/mm3 (0.0-0.2); Basophils % (Auto) 1 % (0-2.5); Eosinophils # (Auto) 0.1 Thou/mm3 (0.0-0.5); Eosinophils % (Auto) 4 % (0-10); Hematocrit 26.3 % (36.0-46.0); Immature Granulocytes Auto 0.03 Thou/mm3 (0.00-0.00); Lymphocytes # (Auto) 0.5 Thou/mm3 (1.0-4.8); Lymphocytes % (Auto) 15 % (10-50); Mean Corpuscular HGB Conc 31.6 g/dl (31.0-37.0); Mean Corpuscular Hemoglobin 27.5 pg (25.0-35.0); Mean Corpuscular Volume 87 fL (80-100); Monocytes # (Auto) 0.3 Thou/mm3 (0.0-0.8); Monocytes % (Auto) 10 % (0-12); Neutrophils # (Auto) 2.1 Thou/mm3 (1.8-7.7); Neutrophils % (Auto) 69 % (37-80); Nucleated Red Blood Cell # 0.00 Thou/mm3 (0.00-0.00); Nucleated Red Blood Cell % 0 /100 WBC (0); RDW Standard Deviation 49.8 fL (36.4-46.3); Red Blood Count 3.02 Miln/mm3 (4.00-5.20); White Blood Count 3.1 Thou/mm3 (3.6-11.0)
[2024-11-01 17:56] LABS: Hemoglobin 8.3 g/dL (12.0-16.0); Platelet Count 49 Thou/mm3 (140-440)
[2024-11-01] MEDS: HEPARIN SOD INJ 1000 UNIT/ML VIAL 10 ML 3800 UNIT INDWELLCAT (18:00)
[2024-11-01 18:37] LABS: Slide Review Platelets confirmed
--- NOTE | 2024-11-01 18:46 | ESPR_ITS ---
Documentation for date of: 11/01/24 Subjective Subjective Interval history: No acute overnight events. Patient got tunneled dialysis catheter yesterday. Vitals are stable. Patient is getting dialysis at the time of examination and is tolerating well. Done today still showed pancytopenia with stable hemoglobin. Around 1 PM, rapid response was called on the patient in view of bleeding from the dialysis catheter site. Vital signs stable at the time. Dressing at the catheter site was open and noted to have blood clot with slight oozing noted. Dressing was done again. Repeat CBC and coagulation studies were done which did not show any significant new abnormality. Will follow satellite dish installer, Dr. Muniz's recommendations. Working with social services specialist for outpatient dialysis chair placement. Exam Vital Signs Temp Pulse Resp BP Pulse Ox O2 Del Method O2 Flow Rate 97.0 F 79 16 139/79 H 98 Room Air 3 11/01/24 13:17 11/01/24 13:17 11/01/24 13:17 11/01/24 13:17 11/01/24 13:17 11/01/24 12:00 10/31/24 12:00 Narrative Exam General: Awake. HEENT: Normocephalic, atraumatic, mucous membranes moist. noted bleeding at the site of HD catheter. Heart: Regular rate and rhythm, no murmurs. Lungs: Clear to auscultation with no wheezing or crackles. Abdomen: Soft, nondistended, nontender, positive bowel sounds. ?No guarding or rebound tenderness. Neurologic: Alert and oriented x3, no gross neurological deficit, and patient able to move all 4 extremities. Extremities: Noted mild bilateral pitting pedal edema with oozing. Skin: No rash or ecchymoses. Objective Labs 11/03/24 05:15 11/03/24 05:15 Labs: Laboratory Results - last 24 hr 11/01/24 11/01/24 11/01/24 05:15 14:05 17:20 WBC 3.0 L Cancelled 3.1 L RBC 3.00 L Cancelled 3.02 L Hgb 8.3 L Cancelled 8.3 L Hct 26.5 L Cancelled 26.3 L MCV 88 Cancelled 87 MCH 27.7 Cancelled 27.5 MCHC 31.3 Cancelled 31.6 RDW Std Deviation 50.4 H Cancelled 49.8 H Plt Count 56 L Cancelled 49 L Neut % (Auto) 66 Cancelled 69 Lymph % (Auto) 18 Cancelled 15 Cedar % (Auto) 12 Cancelled 10 Eos % (Auto) 4 Cancelled 4 Baso % (Auto) 1 Cancelled 1 Neut # (Auto) 2.0 Cancelled 2.1 Lymph # (Auto) 0.5 L Cancelled 0.5 L Cedar # (Auto) 0.4 Cancelled 0.3 Eos # (Auto) 0.1 Cancelled 0.1 Baso # (Auto) 0.0 Cancelled 0.0 Immature Gran # (Auto) 0.02 H Cancelled 0.03 H Absolute Nucleated RBC 0.00 Cancelled 0.00 Immature Gran % 1 H Cancelled 1 H Nucleated RBC % 0 Cancelled 0 PT 12.3 H INR 1.1 APTT 24.0 Sodium 146 H Potassium 4.1 Chloride 110 H Carbon Dioxide 22.4 Anion Gap 14 BUN 41 H Creatinine 4.8 H* D Estim Creat Clear Calc 13.8 L eGFR 10 L* BUN/Creatinine Ratio 9 L Glucose 74 Calculated Osmolality 299 H Calcium 8.5 Corrected Calcium 9.1 Phosphorus 4.9 Magnesium 2.2 Total Bilirubin 0.4 AST 20 ALT 14 Alkaline Phosphatase 131 H Total Protein 5.5 L Albumin 3.2 L Globulin 2.3 Albumin/Globulin Ratio 1.4 Misc Test Result Platelets confirmed Platelets confirmed Blood Type A Positive Antibody Screen NEGATIVE Crossmatch See Detail Blood Bank Wristband ID Yes Quality Measures Quality Measures none Advance care planning discussed with:: patient Assessment & Plan Assessment Current Active Medications: Generic Name Dose Route Start Last Admin Trade Name Freq PRN Reason Stop Dose Admin Acetaminophen 650 mg 10/29/24 16:29 Acetaminophen 325 Mg Tablet PO 11/28/24 16:28 Q6H PRN Temp >100.3 or mild pain 1-3 Cephalexin HCl 250 mg 11/01/24 09:00 11/01/24 10:54 Cephalexin 250 Mg Capsule PO 11/08/24 08:59 250 mg QDAY SIDRA Administration Heparin Sodium (Porcine) 3,800 unit 10/31/24 15:01 11/01/24 18:00 Heparin Sod Inj 1000 Unit/Ml Vial 10 Ml INDWELLCAT 11/14/24 15:00 3,800 unit PRN PRN Administration DIALYSIS Albumin Human 25 gm in 100 mls @ 100 mls/min 10/31/24 14:10 Albuminar-25 Ivpb IV PRN PRN DIALYSIS Methadone HCl 65 mg 10/31/24 09:00 11/01/24 10:53 Methadone Hcl 10 Mg Tablet PO 11/05/24 08:59 65 mg QDAY SIDRA Administration Protocol Ondansetron HCl 4 mg 10/29/24 16:29 Ondansetron Inj 2 Mg/Ml Inj 2 Ml IVP 11/28/24 16:28 Q6H PRN NAUSEA OR VOMITING Protocol Sennosides 1 tab 10/30/24 09:00 11/01/24 10:54 Senna Tablet PO 11/29/24 08:59 1 tab QDAY SIDRA Administration Protocol Plan Patient is 64-year-old female with PMH of bedbound for the past 2 years, hypertension, chronic back pain, methadone likely secondary to history of meth use, hepatitis C treated with interferon therapy (2001), pancreatic mass, CKD who presented on 10/29 for generalized weakness and worsening kidney functions per last week's lab work, admitted for worsening renal function and dialysis initiation. #Renal Failure #Dialysis Presented with worsening renal functions on regular lab check up. Denies burning micturition, change in urine output, nausea, vomiting, diarrhea episodes, no change in diet and endorsed that she is taking adequate fluids. Endorses lower extremity swelling for the past 2 months. Note patient has been bedbound for the past 2 years. Hepatitis C treated with interferon therapy (2001), Hep C Ab positive. Baseline creatinine 2.5 in 2022, admission creatinine 5.8. Renal US 10/30 shows bilateral cortical renal thinning, moderate bilateral scar formation, bilateral renal cysts. No bladder mass. Suspect progressive chronic kidney disease due to history of hypertension and diabetes mellitus complicated with diabetic peripheral neuropathy and peripheral arterial disease. All under control without medications. Plan: - Dialysis catheter placed in right IJ, underwent HD on 11/01/2024 - Strict I's and O's - Uniform Patrol Police Officer Dr. Marquez consulted, appreciate recommendations: Tunnel dialysis catheter placement done, monitor after 2-3 dialysis sessions before discharge - TB testing - HCV RNA, PCR, QN - Avoid nephrotoxic medications - Renally dose medications #Hypernatremia #Hyperchloremia Admission sodium 146, chloride 113. Likely mild dehydration. Bedside US unable to assess IVC. S/p IV LR 1 L without much improvement. Plan: ? CTM electrolytes ? Dialysis as above #Metabolic acidosis, resolved #Normal anion gap A admission bicarb 19, likely in setting of renal failure. Normal anion gap. No lactic acidosis. On exam no acidotic breathing. Plan: ? CTM electrolytes ? Dialysis as above #E coli UTI UA on admission shows 2+ protein, 3+ blood, 114 RBC, 208 WBC, 2+ bacteria. Preliminary urine culture results grew gram-negative rods. Urine culture positive for E. coli, pansensitive. Plan: - Discontinue IV CFX 1g (10/29-10/31) - Start on Keflex 250 mg (11/01 - #Pancytopenia #Anemia of chronic kidney disease Admission WBC 3.1, hemoglobin 6.6, platelet 78,000. Total bilirubin 0.5. Liver enzymes within normal limits. Alk phos elevated at 129. Iron panel 10/25: Iron 47, TIBC 310 (WNL) iron saturation 15, unsat iron-binding 263. Likely anemia chronic disease. Denies melena or bloody stools, hemoptysis, hematuria. S/p total 3 unit pRBC (10/29). Plan: ? peripheral smear - showed no significant abnormalty ? FOBT - negative - Will need to see PCP on outpatient basis and follow up with a linux kernel engineer for further management. #Meth use #Marijuana use disorder #Chronic back pain #Bedbound #Lower extremity paralysis #Chronic wounds Taking methadone 65 mg daily. Reports 10-year history of meth use in her 30s. Denies any current meth use. Follows with methadone clinic in [place], has been working to wean down methadone use. Patient reports this is for her chronic back pain however based on amount possible history of meth use. UTOX positive for meth and marijuana. Plan: - learning services coordinator consulted - Continue methadone 65 mg daily - Wound care Health Maintenance Disposition: med surg, dialysis DVT prophylaxis: none in setting of worsening anemia and leaking wounds on legs GI prophylaxis: Zofran for nausea Diet: Renal CODE STATUS: DNR Patient plan of care was discussed with the attending physician, Dr. Lyudmila Feliciano, PGY2 Attending Provider Attestation/Addendum Face to face evaluation was performed by me. I have personally seen and examined the patient. I discussed the assessment and plan with the entire medicine team. I reviewed available medical records, imaging studies, laboratory results. I agree with the above subjective data, objective findings, assessment and plan except as corrected by me or noted below Acute renal failure on CKD stage IV-V now requiring hemodialysis Chronic methadone usage Essential hypertension Continue with dialysis per nephrology Of chronic kidney disease anemia , thrombocytopenia, neutropenia?pancytopenia -Continue HD per nephrology monitor vitals Continue methadone home dose- More than > 30 minutes spent on the encounter
[2024-11-02] VITALS (21 sets, daily range): BP systolic 114–165; BP diastolic 63–82; PULSE 69–107; RESP 17–20; TEMP 36.1–36.9; O2SAT 90–99
[2024-11-02 06:16] LABS: Basophils # (Auto) 0.0 Thou/mm3 (0.0-0.2); Basophils % (Auto) 1 % (0-2.5); Eosinophils # (Auto) 0.2 Thou/mm3 (0.0-0.5); Eosinophils % (Auto) 5 % (0-10); Hematocrit 25.5 % (36.0-46.0); Immature Granulocytes Auto 0.02 Thou/mm3 (0.00-0.00); Lymphocytes # (Auto) 0.6 Thou/mm3 (1.0-4.8); Lymphocytes % (Auto) 19 % (10-50); Mean Corpuscular HGB Conc 31.8 g/dl (31.0-37.0); Mean Corpuscular Hemoglobin 28.4 pg (25.0-35.0); Mean Corpuscular Volume 90 fL (80-100); Monocytes # (Auto) 0.3 Thou/mm3 (0.0-0.8); Monocytes % (Auto) 10 % (0-12); Neutrophils # (Auto) 2.0 Thou/mm3 (1.8-7.7); Neutrophils % (Auto) 64 % (37-80); Nucleated Red Blood Cell # 0.00 Thou/mm3 (0.00-0.00); Nucleated Red Blood Cell % 0 /100 WBC (0); RDW Standard Deviation 51.5 fL (36.4-46.3); Red Blood Count 2.85 Miln/mm3 (4.00-5.20); White Blood Count 3.0 Thou/mm3 (3.6-11.0)
[2024-11-02 06:33] LABS: Hemoglobin 8.1 g/dL (12.0-16.0); Platelet Count 55 Thou/mm3 (140-440)
[2024-11-02 07:06] LABS: Slide Review Platelets confirmed
[2024-11-02 07:17] LABS: Alanine Aminotransferase 13 U/L (10-49); Albumin, Serum 3.0 gm/dL (3.4-4.8); Albumin/Globulin Ratio 1.2 (1.2-2.2); Alkaline Phosphatase 125 U/L (46-116); Anion Gap 10 (7-16); Aspartate Amino Transferase 25 U/L (0-34); BUN/Creatinine Ratio 6 Ratio (12-20); Bilirubin,Total 0.5 mg/dL (0.3-1.2); Blood Urea Nitrogen 23 mg/dL (9-23); Calcium 8.3 mg/dL (8.3-10.6); Calcium (Corrected) 9.1 mg/dL (8.5-10.1); Carbon Dioxide 24.8 mMol/L (20.0-31.0); Chloride 108 mMol/L (98-107); Creatinine (Component) 3.7 mg/dL (0.6-1.3); Estimated Creatinine Clearance 17.9 mL/min (>60); Globulin 2.5 gm/dL (2.3-3.5); Glucose 78 mg/dL (74-106); Magnesium 2.1 mg/dL (1.6-2.6); Osmolality,Calculated 287 (275-295); Phosphorous 3.8 mg/dL (2.4-5.1); Potassium 4.2 mMol/L (3.4-5.1); Sodium 143 mMol/L (136-145); Total Protein 5.5 gm/dL (5.7-8.2); eGFR 13 See Note
--- NOTE | 2024-11-02 09:27 | ESPR_ITS ---
<Statement entered by Ricardo Feliciano MD - 11/02/24 13:44> No acute overnight events. Patient is complaining of constipation, likely opioid-induced and due to immobility. Otherwise patient is doing good, underwent HD today uneventfully. On physical examination, noted blood clot at the site of the HD catheter but no active bleeding. Vitals are stable. Noted to have urine output of 600 mL overnight. Labs done today still showed pancytopenia and the hemoglobin is stable. Started on Movantik 25 mg once daily in view of constipation. On senna p.o. daily, 1 dose of PEG is given, will closely monitor magnesium levels. Will continue Keflex in view of E. coli urinary tract infection. Patient was explained about the pancytopenia and further follow-up on outpatient basis. HCV titers, cryoglobulin, RF factor, C3 and C4 are sent in view of active HCV infection, lower extremity vasculitic changes, renal failure. Will follow-up with the results. Still pending outpatient dialysis chair placement. Will continue HD till the outpatient dialysis is set up I have personally seen and examined the patient, agree with residents assessment and planally seen and examined the patient, agree with residents assessment and plan Patient plan of care was discussed with the attending physician, Dr. Lyudmila Feliciano, PGY2 Documentation for date of: 11/02/24 Subjective Subjective Interval history: No acute events overnight. Third dialysis session today. Complaining of right ear pain, possibly secondary to dialysis session. Also reports constipation, likely opioid induced and secondary to being bedbound. Currently on Senna, will add Movantik 25 mg daily. Denies fever, chills, myalgias. Continue Keflex for UTI. Pending HCV titres. Renal function improving on dialysis. Pending dialysis chair. Exam Vital Signs Temp Pulse Resp BP Pulse Ox O2 Del Method O2 Flow Rate 97.8 F 85 18 158/75 H 98 Room Air 3 11/02/24 08:28 11/02/24 09:19 11/02/24 08:28 11/02/24 09:19 11/02/24 08:28 11/02/24 00:00 10/31/24 12:00 Narrative Exam Physical Exam General: Awake and in no acute distress. Conversational. Appears older than stated age. Bedbound. HEENT: Normocephalic, atraumatic, mucous membranes moist. Heart: Regular rate and rhythm, normal S1 and S2, no murmurs. Lungs: Clear to auscultation with no wheezing or crackles. Abdomen: Soft, nondistended, nontender, positive bowel sounds. No guarding or rebound tenderness. Neurologic: Alert and oriented x3, no gross neurological deficit, and patient able to move upper extremities. Unable to move lower extremities. All extremities appear contracted. Extremities: 1+ pitting edema bilaterally, extending to knees. Skin: Noted rash on lower extremities and flaking with chronic skin changes - induration. Multiple sites of ecchymoses on forearms. Objective Labs 11/03/24 05:15 11/03/24 05:15 Labs: Laboratory Results - last 24 hr 11/01/24 11/01/24 11/02/24 14:05 17:20 04:49 WBC Cancelled 3.1 L 3.0 L RBC Cancelled 3.02 L 2.85 L Hgb Cancelled 8.3 L 8.1 L Hct Cancelled 26.3 L 25.5 L MCV Cancelled 87 90 MCH Cancelled 27.5 28.4 MCHC Cancelled 31.6 31.8 RDW Std Deviation Cancelled 49.8 H 51.5 H Plt Count Cancelled 49 L 55 L Neut % (Auto) Cancelled 69 64 Lymph % (Auto) Cancelled 15 19 [place] % (Auto) Cancelled 10 10 Eos % (Auto) Cancelled 4 5 Baso % (Auto) Cancelled 1 1 Neut # (Auto) Cancelled 2.1 2.0 Lymph # (Auto) Cancelled 0.5 L 0.6 L [place] # (Auto) Cancelled 0.3 0.3 Eos # (Auto) Cancelled 0.1 0.2 Baso # (Auto) Cancelled 0.0 0.0 Immature Gran # (Auto) Cancelled 0.03 H 0.02 H Absolute Nucleated RBC Cancelled 0.00 0.00 Immature Gran % Cancelled 1 H 1 H Nucleated RBC % Cancelled 0 0 PT 12.3 H INR 1.1 APTT 24.0 Sodium 143 Potassium 4.2 Chloride 108 H Carbon Dioxide 24.8 Anion Gap 10 BUN 23 Creatinine 3.7 H D Estim Creat Clear Calc 17.9 L eGFR 13 L* BUN/Creatinine Ratio 6 L Glucose 78 Calculated Osmolality 287 Calcium 8.3 Corrected Calcium 9.1 Phosphorus 3.8 Magnesium 2.1 Total Bilirubin 0.5 AST 25 ALT 13 Alkaline Phosphatase 125 H Total Protein 5.5 L Albumin 3.0 L Globulin 2.5 Albumin/Globulin Ratio 1.2 Misc Test Result Platelets confirmed Platelets confirmed Blood Type A Positive Antibody Screen NEGATIVE Crossmatch See Detail Blood Bank Wristband ID Yes Quality Measures Quality Measures none Advance care planning discussed with:: patient Assessment & Plan Assessment Current Active Medications: Generic Name Dose Route Start Last Admin Trade Name Freq PRN Reason Stop Dose Admin Acetaminophen 650 mg 10/29/24 16:29 Acetaminophen 325 Mg Tablet PO 11/28/24 16:28 Q6H PRN Temp >100.3 or mild pain 1-3 Cephalexin HCl 250 mg 11/01/24 09:00 11/01/24 10:54 Cephalexin 250 Mg Capsule PO 11/05/24 08:59 250 mg QDAY SIDRA Administration Heparin Sodium (Porcine) 3,800 unit 10/31/24 15:01 11/01/24 18:00 Heparin Sod Inj 1000 Unit/Ml Vial 10 Ml INDWELLCAT 11/14/24 15:00 3,800 unit PRN PRN Administration DIALYSIS Albumin Human 25 gm in 100 mls @ 100 mls/min 10/31/24 14:10 Albuminar-25 Ivpb IV PRN PRN DIALYSIS Methadone HCl 65 mg 10/31/24 09:00 11/01/24 10:53 Methadone Hcl 10 Mg Tablet PO 11/05/24 08:59 65 mg QDAY SIDRA Administration Protocol Ondansetron HCl 4 mg 10/29/24 16:29 Ondansetron Inj 2 Mg/Ml Inj 2 Ml IVP 11/28/24 16:28 Q6H PRN NAUSEA OR VOMITING Protocol Sennosides 1 tab 10/30/24 09:00 11/01/24 10:54 Senna Tablet PO 11/29/24 08:59 1 tab QDAY SIDRA Administration Protocol Plan Patient is 64-year-old female with PMH of bedbound for the past 2 years, hypertension, chronic back pain, methadone likely secondary to history of meth use, hepatitis C treated with interferon therapy (2001), pancreatic mass, CKD who presented on 10/29 for generalized weakness and worsening kidney functions per last week's lab work, admitted for worsening renal function and dialysis initiation. #Renal Failure #Dialysis Presented with worsening renal functions on regular lab check up. Denies burning micturition, change in urine output, nausea, vomiting, diarrhea episodes, no change in diet and endorsed that she is taking adequate fluids. Endorses lower extremity swelling for the past 2 months. Note patient has been bedbound for the past 2 years. Hepatitis C treated with interferon therapy (2001), Hep C Ab positive. Baseline creatinine 2.5 in 2022, admission creatinine 5.8. Renal US 10/30 shows bilateral cortical renal thinning, moderate bilateral scar formation, bilateral renal cysts. No bladder mass. Suspect progressive chronic kidney disease due to history of hypertension and diabetes mellitus complicated with diabetic peripheral neuropathy and peripheral arterial disease. All under control without medications. Bleeding from catheter site 11/01, resolved with pressure and surgiseal dressing. Completed dialysis sessions: 10/31, 11/01, 11/02 Plan: - Kohli catheter in place - Dialysis catheter placed in right IJ - Strict I's and O's - Radio Interference Expert Dr. Marquez consulted, appreciate recommendations: 3rd dialysis session today, pending dialysis chair - TB testing - HCV RNA, PCR, QN - Avoid nephrotoxic medications - Renally dose medications #Hypernatremia, resolved #Hyperchloremia Admission sodium 146, chloride 113. Likely mild dehydration. Bedside US unable to assess IVC. S/p IV LR 1 L without much improvement. Plan: ? CTM electrolytes ? Dialysis as above #Metabolic acidosis, resolved #Normal anion gap A admission bicarb 19, likely in setting of renal failure. Normal anion gap. No lactic acidosis. On exam no acidotic breathing. Did not improve status post IV LR 1 L. Plan: ? CTM electrolytes ? Dialysis as above #E coli UTI UA on admission shows 2+ protein, 3+ blood, 114 RBC, 208 WBC, 2+ bacteria. Preliminary urine culture results grew gram-negative rods. Urine culture positive for E. coli, pansensitive. S/p IV CFX (10/29-10/31). Plan: - Keflex 500 mg (11/01- #Normocytic anemia, likely ACD #Mild leukopenia #Moderate thrombocytopenia Admission WBC 3.1, hemoglobin 6.6, platelet 78,000. Total bilirubin 0.5. Liver enzymes within normal limits. Alk phos elevated at 129. Iron panel 10/25: Iron 47, TIBC 310 (WNL) iron saturation 15, unsat iron-binding 263. Likely anemia chronic disease. Denies melena or bloody stools, hemoptysis, hematuria. S/p total 3 unit pRBC (10/29). Peripheral smear 10/29 shows severe normocytic anemia without hemolysis. Mild leukopenia without morphological abnormalities. Moderate thrombocytopenia. FOBT negative. Plan: - Consider iron supplementation outpatient after infection resolves #Meth use #Marijuana use disorder #Chronic back pain #Bedbound #Lower extremity paralysis #Chronic wounds Taking methadone 65 mg daily. Reports 10-year history of meth use in her 30s. Denies any current meth use. Follows with methadone clinic in [place], has been working to wean down methadone use. Patient reports this is for her chronic back pain however based on amount possible history of meth use. UTOX positive for meth and marijuana. Plan: - flight attendant inflight services consulted - Continue methadone 65 mg daily - Wound care Health Maintenance Disposition: med surg, pending dialysis chair DVT prophylaxis: none in setting of worsening anemia and leaking wounds on legs GI prophylaxis: Zofran for nausea Diet: Renal CODE STATUS: DNR Patient plan of care was discussed with the resident, Dr. Feliciano, and attending physician, Dr. Coreas. Clare Ferro, PGY-1 Attending Provider Attestation/Addendum Face to face evaluation was performed by me. I have personally seen and examined the patient. I discussed the assessment and plan with the entire medicine team. I reviewed available medical records, imaging studies, laboratory results. I agree with the above subjective data, objective findings, assessment and plan except as corrected by me or noted below Acute renal failure on CKD stage IV-V now requiring hemodialysis Chronic methadone usage Essential hypertension Continue with dialysis per nephrology Of chronic kidney disease anemia , thrombocytopenia, neutropenia?pancytopenia -Patient stable continue to monitor vitals closely nephrology following/was consulted dialysis per nephrology monitor electrolytes as well. More than > 30 minutes spent on the encounter
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
[2024-11-02] MEDS: HEPARIN SOD INJ 1000 UNIT/ML VIAL 10 ML 3800 UNIT INDWELLCAT (12:02)
[2024-11-02] MEDS: METHADONE HCL 10 MG TABLET 65 MG PO (12:08)
[2024-11-02] MEDS: POLYETHYLENE GLYCOL 17 GM PACKET PO (14:51)
[2024-11-02] MEDS: NALOXEGOL OXALATE 25 MG TABLET (NON-FORMULARY) PO (14:51)
--- NOTE | 2024-11-02 16:17 | PC.SS ---
Rounding: Pending HD Chair, will receive another HD session tomorrow, [facility]AG[facility] plan home
[2024-11-02 17:48] LABS: HCV RNA, PCR (Source Pt) 17700 IU/mL
[2024-11-03] VITALS: BP 137/59; PULSE 81; RESP 18; TEMP 36.1; O2SAT 97
[2024-11-03 04:00] VITALS: BP 138/60; PULSE 80; RESP 19; TEMP 36.1; O2SAT 98
[2024-11-03 05:34] LABS: Misc Send Out* See Sep Rpt
[2024-11-03 05:44] LABS: Basophils # (Auto) 0.0 Thou/mm3 (0.0-0.2); Basophils % (Auto) 1 % (0-2.5); Eosinophils # (Auto) 0.1 Thou/mm3 (0.0-0.5); Eosinophils % (Auto) 2 % (0-10); Hematocrit 25.8 % (36.0-46.0); Immature Granulocytes Auto 0.02 Thou/mm3 (0.00-0.00); Lymphocytes # (Auto) 0.4 Thou/mm3 (1.0-4.8); Lymphocytes % (Auto) 11 % (10-50); Mean Corpuscular HGB Conc 32.2 g/dl (31.0-37.0); Mean Corpuscular Hemoglobin 28.1 pg (25.0-35.0); Mean Corpuscular Volume 88 fL (80-100); Monocytes # (Auto) 0.3 Thou/mm3 (0.0-0.8); Monocytes % (Auto) 7 % (0-12); Neutrophils # (Auto) 2.7 Thou/mm3 (1.8-7.7); Neutrophils % (Auto) 79 % (37-80); Nucleated Red Blood Cell # 0.00 Thou/mm3 (0.00-0.00); Nucleated Red Blood Cell % 0 /100 WBC (0); RDW Standard Deviation 48.9 fL (36.4-46.3); Red Blood Count 2.95 Miln/mm3 (4.00-5.20); White Blood Count 3.5 Thou/mm3 (3.6-11.0)
[2024-11-03 05:48] LABS: Hemoglobin 8.3 g/dL (12.0-16.0); Platelet Count 49 Thou/mm3 (140-440)
[2024-11-03 06:04] LABS: Alanine Aminotransferase 14 U/L (10-49); Albumin, Serum 2.9 gm/dL (3.4-4.8); Albumin/Globulin Ratio 1.3 (1.2-2.2); Alkaline Phosphatase 124 U/L (46-116); Anion Gap 10 (7-16); Aspartate Amino Transferase 22 U/L (0-34); BUN/Creatinine Ratio 7 Ratio (12-20); Bilirubin,Total 0.5 mg/dL (0.3-1.2); Blood Urea Nitrogen 21 mg/dL (9-23); Calcium 8.1 mg/dL (8.3-10.6); Calcium (Corrected) 9.0 mg/dL (8.5-10.1); Carbon Dioxide 27.3 mMol/L (20.0-31.0); Chloride 106 mMol/L (98-107); Creatinine (Component) 3.2 mg/dL (0.6-1.3); Estimated Creatinine Clearance 20.6 mL/min (>60); Globulin 2.2 gm/dL (2.3-3.5); Glucose 78 mg/dL (74-106); Magnesium 2.0 mg/dL (1.6-2.6); Osmolality,Calculated 286 (275-295); Phosphorous 3.1 mg/dL (2.4-5.1); Potassium 4.0 mMol/L (3.4-5.1); Sodium 143 mMol/L (136-145); Total Protein 5.1 gm/dL (5.7-8.2); eGFR 15 See Note
[2024-11-03 07:29] LABS: Slide Review Platelets confirmed
[2024-11-03 08:00] VITALS: BP 125/77; PULSE 83; RESP 18; TEMP 36.4; O2SAT 96
[2024-11-03 08:22] VITALS: BMI 29.6
[2024-11-03] MEDS: METHADONE HCL 10 MG TABLET 65 MG PO (09:05)
[2024-11-03 09:11] LABS: HCV RNA, PCR Log IU (Src Pt) 4.25 Log IU/mL
[2024-11-03] MEDS: NALOXEGOL OXALATE 25 MG TABLET (NON-FORMULARY) PO (09:24)
[2024-11-03 09:39] LABS: OBS Developer Expiration Date *Enter Exp Date*; OBS Developer Lot # 02/24 551449; OBS Performed By RANGP2; OBS QC OK? Yes; Occult Blood, Stool Negative (Negative)
--- NOTE | 2024-11-03 10:12 | PC.SS ---
SS met with pt who is refusing SNF. SS spoke to Stefania from [facility] who explained pt has been approved by her health insurance. SS met with pt who states she can sit in wheelchair and her caregiver helps. Patient's TB test has not been read. Bedside nurse, Shanta is aware and Toya, Charge Nurse is aware TB requires to be read for pt to start dilaysis. SS spoke to Elvia at [facility] who is requesting TB results be sent. 1st dialysis session provided 11-04-24Sunday.
--- NOTE | 2024-11-03 11:01 | PC.NURSE ---
[facility] AT [facility]IDE COORDINATING TRANSPORTATION AND PTS NEEDS. NO TB IMMUNIZATION NEEDED, PER [facility] WILL TAKE CARE OF IT OUTPATIENT.
--- NOTE | 2024-11-03 11:23 | PC.SS ---
SS was informed by Charge Nurse, Toya TB was not read over the weekend and is too late be read now. SS spoke to Elvia from [facility] who states she has met with her boss and has been approved to give pt TB test at the dialysis center (this one time only). SS met with pt who states her caregiver is home and to send her home. SS attempted to call Kip Becerra at [phone] but was unsuccessful. Call kept going to voicemail and was unable to leave message. SS called her son, Rigoberto Veronica, phone# [phone] but was only able to leave voicemail. SS attempted to contact her dtr, Rebeka Veronica at [phone] but number was disconnected. Pt is aware she is ready for d/c and is unsafe to go home without family/caregiver being there to let her into the house. SS offered pt choice to go to SNF and she refuses. Pt states she is able to sit into wheelchair with assistance. Pt is attempting to contact her caregiver.
--- NOTE | 2024-11-03 11:32 | PD.RESPRO ---
Documentation for date of: 11/03/24 Exam Vital Signs Temp Pulse Resp BP Pulse Ox O2 Del Method O2 Flow Rate 97.5 F 83 18 125/77 96 Room Air 3 11/03/24 08:00 11/03/24 08:00 11/03/24 08:00 11/03/24 08:00 11/03/24 08:00 11/03/24 08:00 11/02/24 12:00 Objective Labs 11/03/24 05:15 11/03/24 05:15 Labs: Laboratory Results - last 24 hr 10/30/24 11/01/24 11/03/24 03:11 12:18 05:15 WBC 3.5 L RBC 2.95 L Hgb 8.3 L Hct 25.8 L MCV 88 MCH 28.1 MCHC 32.2 RDW Std Deviation 48.9 H Plt Count 49 L Neut % (Auto) 79 Lymph % (Auto) 11 [place] % (Auto) 7 Eos % (Auto) 2 Baso % (Auto) 1 Neut # (Auto) 2.7 Lymph # (Auto) 0.4 L [place] # (Auto) 0.3 Eos # (Auto) 0.1 Baso # (Auto) 0.0 Immature Gran # (Auto) 0.02 H Absolute Nucleated RBC 0.00 Immature Gran % 1 H Nucleated RBC % 0 Sodium 143 Potassium 4.0 Chloride 106 Carbon Dioxide 27.3 Anion Gap 10 BUN 21 Creatinine 3.2 H D Estim Creat Clear Calc 20.6 L eGFR 15 L BUN/Creatinine Ratio 7 L Glucose 78 Calculated Osmolality 286 Calcium 8.1 L Corrected Calcium 9.0 Phosphorus 3.1 Magnesium 2.0 Total Bilirubin 0.5 AST 22 ALT 14 Alkaline Phosphatase 124 H Total Protein 5.1 L Albumin 2.9 L Globulin 2.2 L Albumin/Globulin Ratio 1.3 Stool Occult Blood Negative HCV RNA Quant (PCR) 77041 H HCV RNA (PCR) IU log10 4.25 H Misc Test Result See Sep Rpt Platelets confirmed Quality Measures Quality Measures none Assessment & Plan Assessment Current Active Medications: Generic Name Dose Route Start Last Admin Trade Name Freq PRN Reason Stop Dose Admin Acetaminophen 650 mg 10/29/24 16:29 Acetaminophen 325 Mg Tablet PO 11/28/24 16:28 Q6H PRN Temp >100.3 or mild pain 1-3 Cephalexin HCl 250 mg 11/01/24 09:00 11/03/24 09:06 Cephalexin 250 Mg Capsule PO 11/05/24 08:59 250 mg QDAY SIDRA Administration Heparin Sodium (Porcine) 3,800 unit 10/31/24 15:01 11/02/24 12:02 Heparin Sod Inj 1000 Unit/Ml Vial 10 Ml INDWELLCAT 11/14/24 15:00 3,800 unit PRN PRN Administration DIALYSIS Albumin Human 25 gm in 100 mls @ 100 mls/min 10/31/24 14:10 Albuminar-25 Ivpb IV PRN PRN DIALYSIS Methadone HCl 65 mg 10/31/24 09:00 11/03/24 09:05 Methadone Hcl 10 Mg Tablet PO 11/05/24 08:59 65 mg QDAY SIDRA Administration Protocol Naloxegol 25 mg 11/02/24 13:25 11/03/24 09:24 Naloxegol Oxalate 25 Mg Tablet (Non-Formulary) PO 12/02/24 13:24 25 mg QDAY SIDRA Administration Ondansetron HCl 4 mg 10/29/24 16:29 Ondansetron Inj 2 Mg/Ml Inj 2 Ml IVP 11/28/24 16:28 Q6H PRN NAUSEA OR VOMITING Protocol Sennosides 1 tab 10/30/24 09:00 11/03/24 09:07 Senna Tablet PO 11/29/24 08:59 1 tab QDAY SIDRA Administration Protocol
[2024-11-03 12:00] VITALS: BP 124/77; PULSE 86; RESP 17; TEMP 36.5; O2SAT 98
--- NOTE | 2024-11-03 13:42 | PC.SS ---
Addendum entered by Jaylin Cardenas 11/03/24 14:48: SS setup transportation with Serenity from [email or web address] for 6:30pm. Kip is aware and is waiting at home for pt. Bedside nurse, Shanta is aware. Original Note: SS was able to speak to patient's caregiver, Kip Becerra, correct phone# is [phone] who is aware pt is refusing SNF and he is also requesting pt return home upon dc. Per Kip, he is able to transport pt to dialysis if transportation is not covered through patient's health insurance. SS attempted to setup transportation through [employer] but was unsuccessful. Per Jadyn from [employer], pt does not have transportation coverage. SS provided Kip with [employer] phone#, [employer]'s phone#, and patient's dialysis information (time, date, and address). has provided pt with [employer] List which contains phone# to [employer] and [facility] and dilaysis information.
--- NOTE | 2024-11-03 13:51 | ESDS_ITS ---
<Statement entered by Ricardo Feliciano MD - 11/04/24 17:05> I have personally seen and examined the patient, agree with residents assessment and plan Patient plan of care was discussed with the attending physician, Dr. Lyudmila Feliciano, PGY2 Planned Discharge Date 11/03/24 DS: Providers Provider Date of admission: 10/29/24 16:29 Primary care physician: Stan Marroquin MD Admitting Provider: Gracie Piedra DO Attending Provider on Admission: Maximus Coreas MD Consults: 10/29/24 14:46 Consult to Nephrology Stat Comment: PANCHO on CKD Consulting Provider: Guanaco Marquez 10/29/24 17:37 Referral Wound Care Routine Comment: 10/30/24 14:47 Referral OP Wound Healing Dept Routine Comment: Instructions: RLE venous ucler 11/03/24 10:06 Referral Physical Therapy Stat Comment: Physician Instructions: Attending Provider on DC: Maximus Coreas MD Discharging Provider: RESIDENT Cesar DS: Diagnosis Problem List Completed Was Problem List Reviewed/Reconciled?: Yes Hospital Course Hospital Course Hospital course: Summary: Patient is 64-year-old female with PMH of bedbound for the past 2 years , hypertension, chronic back pain, methadone secondary to history of meth use, hepatitis C treated with interferon therapy (2001), pancreatic mass, CKD who presented on 10/29 for generalized weakness and worsening kidney functions per last week's lab work, admitted for worsening renal function and dialysis initiation. ED Course: - Vitals at the time of admission are stable except for mildly elevated blood pressure 140/91 mmHg and saturating 100% on room air - Labs at the time of admission are significant for WBC 3.1, hemoglobin 6.6, platelet count 78, sodium 146, potassium 4.3, chloride 113, bicarb 19, BUN 57, creatinine 5.8 - Urinalysis is significant for 2+ protein, 3+ blood, 114 RBC, 208 WBC, 2+ bacteria - Urine toxicology tested positive for opiates, methamphetamine, marijuana - Chest x-ray done at the time of admission showed elevated right Lionel diaphragm with no significant infiltrates - Bilateral venous Doppler of lower extremities is negative for DVT Reason for hospitalization: Patient is 64-year-old female with PMH of bedbound for the past 2 years, hypertension, chronic back pain, methadone secondary to history of meth use, hepatitis C treated with interferon therapy (2001), pancreatic mass, CKD who presented on 10/29 for generalized weakness and worsening kidney functions per last week's lab work, admitted for worsening renal function and dialysis initiation. Renal ultrasound showed bilateral cortical thinning, moderate bilateral lateral scar formation, bilateral renal cysts. No bladder mass. Lactic acidosis did not resolve with IV fluid resuscitation. Consulted finisher card tender Dr. Marquez, who suspects progressive chronic kidney disease secondary to chronic hypertension and diabetes mellitus complicated with diabet ic peripheral neuropathy and peripheral arterial disease. Recommended initiating dialysis. Right IJ cath was inserted on 10/31 without complications. Rapid was called on 11/01 due to bleeding from catheter site, resolved with pressure and Surgicel dressing. Patient completed 3 dialysis sessions from 10/31 - 11/02. Lactic acidosis resolved after first dialysis session. On admission, UA suggested UTI. Urine cultures grew E. coli, pansensitive. Treated with IV ceftriaxone 10/29 - 10/31, transition to Keflex 500 mg daily on 11/01. Patient will need to continue Keflex for 2 more days to complete 7-day course. Patient tested positive for hep C antibody, HCV RNA elevated. TB PPD was done on 10/31 however not read. Repeated TB skin test on 11/03, patient will need to follow-up outpatient for read. Dialysis chair reserved at [facility]. Patient has caregiver at home who helps her with ADLs. Patient is medically stable for discharge. Discharge Recommendations: - Follow-up with PCP within 1 week of discharge. If you do not have appointment, please follow-up with the [facility] with Dr. Feliciano. Call [phone] to make an appointment. - Recommended to take cephalexin 250mg once daily for 2 more days, 11/04, 11/05 - Take senna everyday 1 tab and movantik as needded for constipation - Recommended to continue rest of the home medications. - Recommended to follow up with Dr. Marquez within 1 week of discharge and continue Hemodialysis as per Dr. Marquez's recommendations - Return to ED if symptoms persist or return Hospital Diagnoses: #ESRD #Dialysis #Hypernatremia, resolved #Hyperchloremia #Metabolic acidosis, resolved #Normal anion gap #E coli UTI #Normocytic anemia, likely ACD #Mild leukopenia #Moderate thrombocytopenia #Meth use #Marijuana use disorder #Chronic back pain #Bedbound #Lower extremity paralysis #Chronic wounds Disposition: Safe discharge to home, already has healthcare network pricing consultant established. Patient plan of care was discussed with the resident, Dr. Feliciano, and attending physician, Dr. Coreas. Clare Ferro, PGY-1 Time Spent with Patient Time attestation: Total time spent providing and/or coordinating discharge services: at least 30 minutes of care coordination Time spent: Greater than 30 minutes Exam Vital Signs Temp Pulse Resp BP Pulse Ox O2 Del Method O2 Flow Rate 97.7 F 86 17 124/77 98 Room Air 3 11/03/24 12:11/03/24 12:11/03/24 12:11/03/24 12:11/03/24 12:11/03/24 12:11/02/24 12:00 Narrative Exam Physical Exam General: Awake and in no acute distress. Conversational. Appears older than stated age. Bedbound. HEENT: Normocephalic, atraumatic, mucous membranes moist. Heart: Regular rate and rhythm, normal S1 and S2, no murmurs. Lungs: Clear to auscultation with no wheezing or crackles. Abdomen: Soft, nondistended, nontender, positive bowel sounds. No guarding or rebound tenderness. Neurologic: Alert and oriented x3, no gross neurological deficit, and patient able to move upper extremities. Unable to move lower extremities. All extremities appear contracted. Extremities: 1+ pitting edema bilaterally, extending to knees. Skin: Noted rash on lower extremities and flaking with chronic skin changes - induration. Multiple sites of ecchymoses on forearms. Discharge Plan Plan Patient Disposition: HOME (Self Care) Patient condition on transfer: Stable Care Plan Goals: - Follow-up with PCP within 1 week of discharge. If you do not have appointment, please follow-up with the [facility] with Dr. Feliciano. Call [phone] to make an appointment. - Recommended to take cephalexin 250mg once daily for 2 more days, 11/04, 11/05 - Take senna everyday 1 tab and movantik as needded for constipation - Recommended to continue rest of the home medications. - Recommended to follow up with Dr. Marquez within 1 week of discharge and continue Hemodialysis as per Dr. Marquez's recommendations - Need to follow up with [facility]/Gastroeneterologist for HCV treatment - Return to ED if symptoms persist or return Prescriptions/Referrals Prescriptions/Med Rec: New sennosides [Senna Lax] 8.6 mg Tablet 8.6 mg PO QDAY Qty: 30 0RF cephalexin 250 mg Capsule 250 mg PO QDAY Qty: 2 0RF Movantik 25 mg tablet 25 mg PO PRN PRN (Reason: constipation) Qty: 30 0RF Rx Instructions: must be taken on empty stomach; no food 1 hr after or 2-3 hrs before dose Continued lisinopril 20 mg tablet 20 mg PO QDAY methadone 10 mg/mL Syringe 65 mg PO QDAY Rx Instructions: CONFIRMED WITH ANTELMO AMAYA Referrals: Stan Marroquin MD [Primary Care Provider, Family Practice] Patient/Caregiver Discharge Instructions Education Materials: Hematuria: Possible Causes, Hemodialysis, Kidney Disease Anemia Iron, Kidney Disease Potassium in Diet, Kidney Disease Calcium Phosphorus, Kidney Disease Protein Choices, Kidney Disease Fluid Intake, Kidney Disease: Eating Less Sodium Print Language: Nicaraguan Stand Alone Forms: [facility] Award Info., Patient Portal Info Letter Discharge Order Discharge Orders: Discharge (Routine); Ordered 11/03/24 Ordered By: Ricardo Feliciano Quality Discharge Quality Measures VTE prophylaxis MD Attestestation MD Attestation Face to face evaluation was performed by me. I have personally seen and examined the patient. I discussed the assessment and plan with the entire medicine team. I reviewed available medical records, imaging studies, laboratory results. I agree with the above subjective data, objective findings, assessment and plan except as corrected by me or noted below Acute renal failure on CKD stage IV-V now requiring hemodialysis Chronic methadone usage Essential hypertension Continue with dialysis per nephrology Of chronic kidney disease anemia , thrombocytopenia, neutropenia?pancytopenia Plan to discharge today, I was told that she can complete her TB screening at dialysis center. Total time Spent on discharge more than 30 minutes
--- NOTE | 2024-11-03 14:34 | PC.NURSE ---
DISCHARGE COMPLETE, PENDING TRANSPORTATION AT 1830. COORDINATED CARE WITH LADLE HANDLER.
[2024-11-03 15:51] VITALS: BP 123/75; PULSE 82; RESP 18; TEMP 36.3; O2SAT 96
[2024-11-03 16:05] VITALS: BMI 12.0
--- NOTE | 2024-11-03 16:28 | PC.SS ---
DME order for [employer] lift has been sent on [facility].
[2024-11-03 16:44] LABS: RA Screen Positive (Negative)
[2024-11-03 16:45] LABS: Rheumatoid Factor Titer 1:32
--- NOTE | 2024-11-04 08:07 | PC.SS ---
Late note 11-03-24: SS received call from JAKE Sanz (after leaving her voicemail) and informed he pt was going to d/c home today.
[2024-11-06 07:03] LABS: Complement Component C3* 72 mg/dL (83-193); Complement Component C4c* 6 mg/dL (15-57)
== END 2024-11-03 19:38 | disposition home or self-care (01) | DRG 674 ==
LOC: SERX 16:39 → S3NX 19:56 → SERHOLD 10-30 05:58
PROVIDERS: Nurse Practitioner Family; Radiology Diagnostic Radiology; Admitting Provider Internal Medicine; Emergency Provider Emergency Medicine; PCP Family Medicine; Visit Provider Internal Medicine
DX: N17.9 Acute kidney failure, unspecified (principal); D61.818 Other pancytopenia; I12.0 Hypertensive chronic kidney disease with stage 5 chronic kidney disease or end stage renal disease; E87.0 Hyperosmolality and hypernatremia; E87.20 Acidosis, unspecified; N39.0 Urinary tract infection, site not specified; E87.1 Hypo-osmolality and hyponatremia; T82.838A Hemorrhage due to vascular prosthetic devices, implants and grafts, initial encounter; M79.89 Other specified soft tissue disorders; N18.6 End stage renal disease; E11.22 Type 2 diabetes mellitus with diabetic chronic kidney disease; E11.51 Type 2 diabetes mellitus with diabetic peripheral angiopathy without gangrene; E11.42 Type 2 diabetes mellitus with diabetic polyneuropathy; B19.20 Unspecified viral hepatitis C without hepatic coma; E87.8 Other disorders of electrolyte and fluid balance, not elsewhere classified; G89.29 Other chronic pain; M54.9 Dorsalgia, unspecified; D63.1 Anemia in chronic kidney disease; B96.20 Unspecified Escherichia coli [E. coli] as the cause of diseases classified elsewhere; F12.10 Cannabis abuse, uncomplicated; D50.9 Iron deficiency anemia, unspecified; F15.90 Other stimulant use, unspecified, uncomplicated; Z74.01 Bed confinement status; E86.0 Dehydration; N28.1 Cyst of kidney, acquired; Y84.1 Kidney dialysis as the cause of abnormal reaction of the patient, or of later complication, without mention of misadventure at the time of the procedure; Z99.2 Dependence on renal dialysis; Z66 Do not resuscitate; Z79.891 Long term (current) use of opiate analgesic; B96.89 Other specified bacterial agents as the cause of diseases classified elsewhere; G83.10 Monoplegia of lower limb affecting unspecified side
CPT/HCPCS: 36415; 36430; 71045; 76770; 76937; 77001; 80053; 80061; 80069; 80074; 80307; 81001; 82270; 82550; 82595; 82607; 82746; 83036; 83540; 83550; 83605; 83735; 83880; 84100; 84145; 84439; 84443; 84484; 85014; 85018; 85025; 85046; 85610; 85730; 86160; 86430; 86431; 86580; 86850; 86900; 86901; 86923; 87077; 87086; 87186; 93005; 93306; 93925; 93970; 96365; 96366; 97161; 99285; A4314; A4649; C1750; C1894; J0696; J1642; J1643; J3010; J3490; J7050; J7120; P9016; Q5105; A9270